=== PATIENT | female | born 1975 | race Caucasian/White ===

== ENCOUNTER → 2017-04-15 | Outpatient (CLI) | payer OTHER, SELFPAY | PROVIDERS: PCP Nurse Practitioner Obstetrics & Gynecology; Visit Provider Nurse Practitioner Obstetrics & Gynecology ==

== ENCOUNTER → 2017-04-20 16:42 | Outpatient (CLI) | payer OTHER, SELFPAY ==
--- NOTE | 2017-04-20 16:47 | MM_ITS ---
MM Dig screening mamm BI w/CAD CAD Screening ORDERING PHYSICIAN : Marcio Winter MD PATIENT AGE: 41 years GENDER: Female COMPARISON: Previous mammograms: 20 Previous mammogram studies from November 2015, April 2015, March 2014 INDICATION: Previous excisional biopsy left breast TECHNIQUE: Standard CC and MLO images were obtained. R2 CAD reviewed. FINDINGS: Low-density breast bilaterally RIGHT BREAST: There is a new slightly lobulated density of slight kidney shape area deep central right breast 12:00. Note 2 small calcifications at its inferior/anterior margin noted. It measures up to 10 mm height 8 mm Initially I would attribute this to an intramammary lymph node in this location given its slightly reniform shape but is become apparent since previous studies. Not seen on prior studies.. Also its margins are slightly ill-defined and it does warrant further evaluation & at least follow-up. Recommend spot CC and 90 degree view followed by ultrasound right breast LEFT BREAST:Left breast. Previous percutaneous biopsy with metallic marker anterior left breast. There is a small focal irregular area density at biopsy site which is been seen on studies back to 2013, similar appearance overall. There are also numerous small dot like calcifications but these small pinpoint calcifications most likely postbiopsy calcifications is similar to 2016 and similar to the more lateral. Most likely these are with biopsy calcifications with this punctate scattered character , however patient returns suggest suggest obtaining a magnification spot 90 degree view to evaluate both areas of of calcification superiorly and inferiorly, as well as a cc magnification view of both regions. (At X and Y) . AlsoPrevious excisional biopsy left breast with architectural distortion very numerous tiny punctate calcifications here. Area labeled X . IMPRESSION:...... ---- 1. Right breast Nearly up to 10 mm height nodular density deep right breast it was not present on previous studies and Although its appearance is suspect for intramammary node it was not present on previous studies and this warrants further evaluation with spot views (90 degrees and cc) and ultrasound thereafter. 2 Left breast. : Additional magnification views at X and Y suggested when patient returns . Previous excisional biopsy lateral left breast shows architectural distortion.. Small punctate calcifications throughout this area similar to last year but shows slow progression. Is most likely post biopsy benign calcifications but would benefit from additional views at this area labeled X Previous percutaneous biopsy with metallic clip at medial retroareolar region. Residual focal density Labeled Y. ; appears fairly stable but there are progressive small punctate calcifications BI-RADS Category: 0 Need Additional Imaging Evaluaiton RECOMMENDED FOLLOW-UP: IMM - IMMEDIATE FOLLOW-UP RECOMMENDED Spot views and ultrasound right breast. Magnification views left breast.-as described above (A letter has been sent to the patient regarding results of the study.)
== END ==
PROVIDERS: PCP Nurse Practitioner Obstetrics & Gynecology; Visit Provider Nurse Practitioner Obstetrics & Gynecology
DX: Z12.31 Encounter for screening mammogram for malignant neoplasm of breast (principal)
CPT/HCPCS: 77067

== ENCOUNTER → 2017-05-07 14:57 | Outpatient (CLI) | payer OTHER, SELFPAY ==
--- NOTE | 2017-05-07 | US_ITS ---
MM Dig mamm BI DX w/CAD, US breast RT complete COMPARISON: 04 20 17 and 12/06/2015 INDICATION: Follow-up abnormal mammogram ORDERING PHYSICIAN: Marcio Winter MD PATIENT AGE: 41 years TECHNIQUE: Spot compression views on the right along with magnification views on the left and right breast ultrasound FINDINGS: Right breast: Persistent nodule measuring 8 x 6 mm in the 12:00 region of the right breast. The margins are somewhat micronodular. There is some minimal calcification noted along the anterior margin of the nodule. This has mildly suspicious appearance. A cyst was not identified in this region by ultrasound Right breast ultrasound: The nodule of interest is not identified by ultrasound. No solid or cystic lesions evident by ultrasound. Left mammogram: Punctate calcifications are present in the upper outer left breast in the periareolar area. The calcifications are somewhat sludge in. Biopsy clip is present in the retroareolar region medially. No one Area of suspicious calcification is evident. There is mild degree of motion artifact despite repeating the images. Calcifications do not appear significantly changed compared to older magnification views of 12/06/2015 IMPRESSION: Persistent nodular opacity in the deep right breast at 12:00 not readily cystic by ultrasound. Mildly suspicious. Calcifications of the left breast are felt to be benign BI-RADS Category: 4 Suspicious Abnormality-Biopsy Considered RECOMMENDED FOLLOW-UP: IMM - IMMEDIATE FOLLOW-UP RECOMMENDED Recommend stereotactic directed biopsy of the right breast. The lesion of interest is fairly deep. Stereotactic biopsy may not be successful but should be tried. A stereotactic biopsy is not successful then a core guided biopsy may be needed (A letter has been sent to the patient regarding results of the study.)
== END ==
PROVIDERS: PCP Family Medicine; Visit Provider Nurse Practitioner Obstetrics & Gynecology
DX: R92.2 Inconclusive mammogram (principal)
CPT/HCPCS: 76641; 77066

== ENCOUNTER → 2017-06-23 08:21 | Outpatient (CLI) | payer OTHER, SELFPAY ==
--- NOTE | 2017-06-23 | MM_ITS ---
MM stereotactic loc RT MM Dig mamm DX unilat RT CAD, COMPARISON: 05/07/2017 mammogram INDICATION: Abnormal mammogram showing a suspicious nodule in the 12-1 o'clock region of the right breast ORDERING PHYSICIAN: Marcio Winter MD PATIENT AGE: 42 years TECHNIQUE: Following obtaining informed consent the nodule of interest was located by stereotactic technique. Using aseptic conditions and local anesthesia with 1% lidocaine and deeper anesthesia with lidocaine mixed with epinephrine a term ostomy was performed and 9 gauge mammotomy needle inserted . Multiple mammotomy cores were obtained. Specimen radiograph did demonstrate the calcifications of interest that were associated with the nodule. A clip was then placed using standard technique. The patient tolerated the procedure well without evidence of immediate complication. Post biopsy mammogram demonstrated biopsy changes in the upper aspect of the right breast with clip in place in satisfactory position in the region of the previously described nodule. Pathology: Focal proliferated breast disease with papillary changes and apical metaplasia. Negative for atypia or malignancy. No mention was made of calcifications therefore, additional pathological review will be requested IMPRESSION: Successful stereotactic directed biopsy of the right breast showing benign findings. As there are no mention of calcifications, will ask pathologist to reviewed the specimen to look for calcifications Further review performed by the pathologist. Calcifications are still not identified . They are definitely present within the tissue specimen. They may have been lost during processing. The pathology on the specimen was benign. Postbiopsy mammogram showed defect in the area of the suspected nodule. RECOMMENDED FOLLOW-UP: 6M - 6 MONTH FOLLOW-UP BI-RADS Category: 2 Benign Finding(s) (A letter has been sent to the patient regarding results of the study.)
== END ==
PROVIDERS: PCP Family Medicine; Visit Provider Nurse Practitioner Obstetrics & Gynecology
DX: N63.0 Unspecified lump in unspecified breast (principal); R92.1 Mammographic calcification found on diagnostic imaging of breast
CPT/HCPCS: 19081; 77065

== ENCOUNTER → 2017-12-28 15:01 | Outpatient (CLI) | payer OTHER, SELFPAY ==
--- NOTE | 2017-12-28 15:04 | MM_ITS ---
MM Dig mamm DX unilat RT CAD INDICATION: Follow-up biopsy ORDERING PHYSICIAN: Marcio Winter MD PATIENT AGE: 42 years COMPARISON: 05/07/2017, 06/23/2017 TECHNIQUE: Diagnostic mammogram of the right with probable centimeters FINDINGS: Mostly fatty replaced fibroglandular tissue. Status post biopsy of the nodule in the central aspect of the right breast superiorly. Biopsy clip is present in that area with some residual density likely reflecting some mild scarring. Previously described nodular density in that area is no longer apparent. No calcifications evident in that region. There is a cluster of calcifications in the right retroareolar region which have developed in the interval and are mildly suspicious. IMPRESSION: Mildly suspicious calcifications in the right retroareolar region. BI-RADS Category: 4 Suspicious Abnormality-Biopsy Considered RECOMMENDED FOLLOW-UP: BIO - BIOPSY RECOMMENDED (A letter has been sent to the patient regarding results of the study.)
== END ==
PROVIDERS: PCP Family Medicine; Visit Provider Nurse Practitioner Obstetrics & Gynecology
DX: R92.8 Other abnormal and inconclusive findings on diagnostic imaging of breast (principal)
CPT/HCPCS: 77065

== ENCOUNTER → 2018-01-05 09:23 | Outpatient (CLI) | payer OTHER, SELFPAY ==
--- NOTE | 2018-01-05 09:26 | MM_ITS ---
MM stereotactic loc RT MM Dig mamm DX unilat RT CAD, ORDERING PHYSICIAN: Marcio Winter MD PATIENT AGE: 42 years Comparison: 12/28/2017 HISTORY: Breast calcifications, abnormal mammogram with suspicious calcifications PROCEDURE: The patient was given 0.5 mg of Xanax, Lortab 5 mg, and analgesia and minor sedation. The patient was placed on the stereotactic table and the abnormality was localized in the most appropriate projection. The breast was prepped in the routine manner, with sterile prep and the overlying skin anesthetized. A 3 to 4 mm skin incision was performed and the 9 gauge sorus vacuum-assisted core biopsy needle was advanced to the region of the calcification. Pre- and post fire images were obtained. After adequate positioning relative to the calcifications was ensured, multiple biopsies were obtained in the region of the calcifications specifically. The core biopsies obtained were sent for specimen mammography. After the calcifications were indeed identified on the specimen mammogram, the procedure was terminated. The patient tolerated the procedure well without complications. Specimen was sent for pathologic analysis which should be forthcoming within 3 working days. Routine follow-up phone call to patient is to be performed as well. A tiny titanium nonferromagnetic MicroMark was positioned through the mammotome needle into the biopsy site. Pathology: Negative for atypical hyperplasia or malignancy. Proliferative breast tissue Nodular stromal fibrosis with fibrocystic changes and apical metaplasia with calcifications IMPRESSION: 1. Successful stereotactic vacuum-assisted core biopsy of the Right breast calcifications. 2. Successful placement of a titanium metal MicroMark. 3. No noted complications. SPECIMEN RADIOGRAPH: The mammographically evident calcifications from the prior study are currently evident within the Alejandro dish and within the specimens obtained during mammotome procedure. This is considered an adequate specimen and the procedure was terminated. IMPRESSION: Successful removal of described breast calcifications. Right BREAST MAMMOGRAM: Compared to the prior study, the previously noted calcification have been removed. A small MicroMark clip was inserted into the region of the calcifications. There is evidence of soft tissue changes in the region of the biopsy was soft tissue gas and edema. IMPRESSION: 1. Adequate placement of the MicroMark clip postbiopsy. 2. Postbiopsy changes within the rightbreast.
== END ==
PROVIDERS: PCP Family Medicine; Visit Provider Nurse Practitioner Obstetrics & Gynecology
DX: R92.8 Other abnormal and inconclusive findings on diagnostic imaging of breast (principal)
CPT/HCPCS: 19081; 77065

== ENCOUNTER → 2018-01-10 14:27 | Outpatient (POV) | payer OTHER, SELFPAY | PROVIDERS: PCP Family Medicine; Referring Provider Orthopaedic Surgery; Visit Provider Specialist | DX: G56.01 Carpal tunnel syndrome, right upper limb (principal) | CPT/HCPCS: 95886; 95908 ==

== ENCOUNTER → 2018-07-07 16:12 | Outpatient (CLI) | payer OTHER, SELFPAY ==
--- NOTE | 2018-07-07 16:17 | MM_ITS ---
MM Dig screening mamm BI w/CAD ORDERING PHYSICIAN : Marcio Winter MD PATIENT AGE: 43 years GENDER: Female COMPARISON: Right mammogram June & December 2017. Bilateral mammogram images from April 2017, April 2015 \ HISTORY. Routine screening.. No hormones no new complaints. screeningFamily history. Maternal grandmother with breast cancer in her 50s Benign percutaneous biopsies right breast: June 2017 -biopsy with clip placement deep right breast December 2017-percutaneous biopsy small grouping calcifications at the retroareolar region,. . Percutaneous biopsy left breast 2012.-Fibrocystic changes and fibrocystic calcifications TECHNIQUE: Standard CC and MLO images were obtained. R2 CAD reviewed. Additional nipple profile MLO view left breast FINDINGS: Minimal residual fibroglandular elements. Lower density breast overall with Generalized fatty replacement . New areas of concern. RIGHT BREAST: No new findings at the right breast. The small nodular density deep right breast seen is seen on April 2017 study has been removed with the percutaneous biopsy. Metallic marker now seen here from such. There is also a second marker seen at the central breast retroareolar region. No new findings here or elsewhere. A few small punctate calcifications faintly seen elsewhere throughout breast appears stable and can be followed LEFT BREAST: Area X: There is been a previous biopsy at medial left breast with metallic MicroMark.. Just lateral to this metallic marker on the cc view I would note a grouping of calcifications is become more evident. These are fairly punctate in nature most likely benign, but are more evident today evident today-. Slightly denser most likely & perhaps slightly more numerous.. *Would benefit from follow-up CC and 90 degree magnification views at the area labeled X on cc view. These specific calcifications are more difficult to visualize on MLO view an seem to dissipate somewhat. Previous percutaneous biopsy and November 2012..Revealed fibrocystic calcifications Area Y:. Numerous other scattered punctate calcifications seen towards the lateral breast on cc view and become quite diffuse towards on MLO view and it have slowly increased in number over time (particular compared back to 2012). These appear punctate & similar to previous studies appear to be stable benign process, adenosis. However the magnification views could perhaps include these areas to evaluate again as well ----- IMPRESSION: Previous bilateral percutaneous biopsies ... LEFT BREAST:. Progression of grouped calcifications noted, projected adjacent, lateral to the percutaneous biopsy metallic MicroMark as seen on today's cc view.. (Area labeled X) However I believe become slightly more scattered, on the MLO view. Most likely these reflecting adenosis & fibrocystic calcifications or changes as,*but would benefit from magnification CC and 90 degree view to further characterize [and evaluate.] Numerous other scattered punctate calcifications lateral right breast ( area/ region labeled Y) has shown slow subtle progression over the years. These are most certainly benign adenosis/ fibrocystic calcifications but can be included on magnification views when patient returns .... RIGHT BREAST. No significant new findings. Follow-up in one year. BI-RADS Category: 0 Need Additional Imaging Evaluation RECOMMENDED FOLLOW-UP: IMM - IMMEDIATE FOLLOW-UP RECOMMENDED Magnification views left breast (A letter has been sent to the patient regarding results of the study.)
== END ==
PROVIDERS: PCP Family Medicine; Visit Provider Nurse Practitioner Obstetrics & Gynecology
DX: Z12.31 Encounter for screening mammogram for malignant neoplasm of breast (principal)
CPT/HCPCS: 77067

== ENCOUNTER → 2018-07-15 15:13 | Outpatient (CLI) | payer OTHER, SELFPAY ==
--- NOTE | 2018-07-15 15:16 | MM_ITS ---
MM Dig mamm DX unilat LT CAD Ordering Physician: Marcio Winter MD Patient Age: 43 years Female COMPARISON: April. This there Also October 2012 mammogram following percutaneous biopsy of similar calcifications INDICATION: Further evaluation progressive breast calcifications left. Previous biopsy on left TECHNIQUE: Multiple spot and magnification views left breast of area labeled X and Y. These were performed in the CC, 90 degree projection FINDINGS: --- There is metallic marker from previous stereotactic biopsy which is useful as a reference point. It is near the area that was labeled X Area labeled X.: On the cc view there appear to be increased number of calcifications adjacent to the metallic clip from previous biopsy. However on the 90 degree views these calcifications appear to become more scattered and are not localized to one specific area. The 90 degree ML view shows several regions of of loosely associated calcifications both inferior and superior to the metallic marker..-Thus suggest 6 month follow-up as this This more diffuse scattered pattern is more suggestive of of adenosis/ & fibrocystic calcifications as was shown on the previous biopsy ( 2013 biopsy showed fibrocystic calcifications). Area labeled Y. . similar considerations as above... These are fairly scattered and actually are are more similar to previous studies dating back to 2016. This is difficult breasts to evaluate given the numerous calcifications. I would note majority calcifications are fairly punctate in character which supports benign character; and we do not see highly suspicious branching or pleomorphic forms.. . Again the punctate scattered calcifications tend supports fibrocystic calcification/adenosis. Thus I believe follow-up would be the best course of action; and if a a single grouping of calcifications becomes of progressive it may need to be pursued with stereotactic. Currently there is no single grouping of calcifications of significantly greater concern, than another; thus follow-up in 5- 6 months recommended IMPRESSION: Difficult to evaluate breast with numerous small calcifications throughout which has shown gradual progression in recent years.. The patient has had a previous biopsy in 2012 which revealed benign fibrocystic calcification. I believe this is most likely what we are viewing now (fibrocystic calcifications/benign adenosis) These are generally small scattered punctate calcifications, but with some areas loosely grouped slightly more evident. But No single area of these loosely grouped calcifications is of significantly greater concern than another . No highly suspicious cluster . Recommend follow-up left mammogram in 5-6 months with magnification views to further confirm relative stability and again evaluate. BI-RADS Category: 3 Probably Benign Finding Short Term Follow-up RECOMMENDED FOLLOW-UP: 6M 6 MONTH FOLLOW-UP A letter has been sent to the patient regarding results of the study.)
== END ==
PROVIDERS: PCP Family Medicine; Visit Provider Nurse Practitioner Obstetrics & Gynecology
DX: R92.8 Other abnormal and inconclusive findings on diagnostic imaging of breast (principal)
CPT/HCPCS: 77065

== ENCOUNTER → 2019-01-27 12:43 | Outpatient (CLI) | payer OTHER, SELFPAY ==
--- NOTE | 2019-01-27 12:44 | MM_ITS ---
PROCEDURE: MM DIG MAMM UNILATERAL LEFT DX W/CAD CLINICAL INDICATION: Dx Bilateral Mammogram- 6 mo f/u Six-month follow-up left breast, follow-up calcifications COMPARISON: [id number] DIG MAMM-DX UNI ADD VIEWS-LT from 04/29/2012 DMDXUL DIG MAMM-DX UNI-LT from 10/27/2012 [facility] DIG MAMM-SURGICAL SPECIMEN from 11/16/2012 DXRT MM Dig mamm DX unilat RT CAD from 01/05/2018 [facility] MM Dig screening mamm BI w/CAD from 07/07/2018 DXLT MM Dig mamm DX unilat LT CAD from 07/15/2018 TECHNIQUE: Mag views obtained along with standard views FINDINGS: There are multiple punctate calcifications once again noted scattered throughout the left breast as previously described. These do not appear significantly changed. There has been prior biopsy with a clip present in the medial aspect of the left breast. There is some nodularity noted in this region and along with punctate calcifications which do not appear significantly changed. IMPRESSION: Probably benign findings. Recommend continued six-month follow-up with magnification views. At that time the right breast should also be performed for continued screening. BI-RAD Category: 3 Probably Benign Finding Short Term Follow-up FOLLOW-UP: 6M 6Month Follow-up (A letter has been sent to the patient regarding results of the study.) Dictated by: Chi Macario MD 02/03/2019 08:21 Electronically signed by Chi Macario MD in [place] 02/03/2019 08:21
== END ==
PROVIDERS: PCP Family Medicine; Visit Provider Nurse Practitioner Obstetrics & Gynecology
DX: R92.8 Other abnormal and inconclusive findings on diagnostic imaging of breast (principal)
CPT/HCPCS: 77065

== ENCOUNTER → 2019-02-28 15:30 | Outpatient (POV) | payer OTHER, SELFPAY | PROVIDERS: Visit Provider Dermatology | DX: Z00.00 Encounter for general adult medical examination without abnormal findings (principal) ==

== ENCOUNTER → 2019-07-31 12:50 | Outpatient (CLI) | payer OTHER, SELFPAY ==
--- NOTE | 2019-07-31 12:51 | MM_ITS ---
PROCEDURE: MM DIG MAMM BI DX W/CAD Digital Breast Tomosynthesis Included CLINICAL INDICATION: abnormal xmg The breast cancer patient's maternal grandmother diagnosed in her 50s. This is a six-month follow-up mammogram left breast and yearly screening exam right breast. COMPARISON: [facility] MM Dig screening mamm BI w/CAD from 07/07/2018 DXLT MM Dig mamm DX unilat LT CAD from 07/15/2018 MM DIG MAMM DX UNILAT LT CAD from 01/27/2019 TECHNIQUE: Standard CC and MLO images and 3D Tomosynthesis was obtained. R2 CAD reviewed. FINDINGS: The breasts are composed primarily of fat with minimal scattered fibroglandular densities throughout each breast. There are stable benign-appearing microcalcifications right breast. There is an asymmetric density mid left breast inner quadrant with associated microcalcifications and a biopsy clip in the central portion of the density. The combination of findings suggests post biopsy scarring with associated benign-appearing microcalcifications. Lloyd images are helpful and confirming the suspicion of post biopsy scarring left breast. There is no new or suspicious lesion in either breast and no suspicious microcalcifications. IMPRESSION: Fatty type breast parenchyma with stable asymmetric density with associated biopsy clip left breast BI-RAD Category: 2 Benign Finding(s) FOLLOW-UP: 1YR 1 Year Follow-up (A letter has been sent to the patient regarding results of the study.) Dictated by: Dr. Raudel Rm MD 08/03/2019 20:[address] Raudel Rm MD in [place] 08/03/2019 20:16
== END ==
PROVIDERS: Visit Provider Nurse Practitioner Obstetrics & Gynecology
DX: R92.8 Other abnormal and inconclusive findings on diagnostic imaging of breast (principal)
CPT/HCPCS: 77062; 77066; G0279

== ENCOUNTER 2020-03-02 15:52 | Emergency (ER) | payer OTHER, SELFPAY ==
[2020-03-02 16:03] VITALS: BP 132/81; PULSE 83; RESP 18; TEMP 36.9; O2SAT 98; BMI 43.0
--- NOTE | 2020-03-02 16:08 | HMH.EDUTC ---
[facility] Disposition Clinical Impression: Encounter for laboratory testing for COVID-19 virus Disposition: Home, Self-Care Condition on Discharge: Good Instructions: DI for Viral Syndrome, Preventing the Spread of Coronavirus Discharge Instructions Additional Instructions: *Monitor Temp, Over the counter Motrin or Tylenol as directed/as needed Tylenol every 4 hours and Motrin every 6 hours (as long as your family doctor has told you that you can take it) for fever or pain. and straight to ER if unable to lower temp less than 101.0 after medication given *Warm salt water gargles may help to soothe the throat *Throat Lozenges *Warm fluids like tea with honey may help to soothe the throat *Sleep elevated *Humidifier/Vaporizer Follow up IMMEDIATELY for new or worsening symptoms or no Noticeable improvement over the next 48-72 hours. 911 for difficulty breathing or swallowing You was tested for today for COVID19 your test result should be back in the next 24-48 hours, you may call to the [facility] tomorrow to see if your test results are back and the result [phone] You was given a handout with instructions for Self Quarantine and Self isolation for while you wait on test results and what to do if they are positive If you are positive the Health Dept will be contacting you also Prescriptions: Benzonatate [Tessalon Perle 100mg Cap*] 100 mg PO TID PRN #30 cap PRN Reason: Cough Transmission Status: Pending to [id number] Referrals: Sera Kwok [Primary Care Provider] - As needed Forms: Work/School Release Time of Disposition: 16:12 Medical Decision Making - Salvador Inquiry Pt receiving controlled substance: No Salvador was queried for this patient: No Vital Signs: 03/02/20 16:03 Temperature 98.4 F Temperature Source Oral Pulse Rate [Radial] 83 Respiratory Rate 18 Blood Pressure [Right Arm] 132/81 Blood Pressure Mean [Right Arm] 98 Blood Pressure Source [Right Arm] Automatic Cuff Blood Pressure Position [Right Arm] Sitting 02 Sat by Pulse Oximetry 98 Oxygen Delivery Method Room Air Orders (Tests/Meds): ORDERS Category Date Time Status Covid-19 Nasal PCR ([facility]) Routine Lab 03/02/20 16:05 Received [facility] HPI - General Stated complaint: Cough, body aches Time Seen by Provider: 03/02/20 16:08 Mode of Arrival: Ambulatory Source of Information: Patient Limitations: No Limitations Description of Symptoms (Recalled from Triage Doc. by RN): COUGH AND BODY ACHES, WANTS COVID TEST HEENT Symptoms (Recalled from RN notes): Yes Resp Symptoms (Recalled from RN notes): No Skin Symptoms (Recalled from RN notes): No MS Symptoms (Recalled from RN notes): No Functional Status (Recalled from RN notes): WNL - History of Present Illness Provider Complaint: Patient state that she has been having cough and body aches States that son is having same symptoms and recently lost his sense of taste and smell States that she wanted to get tested for COVID unsure of exposure - Related Data Home Medications Medication Instructions Recorded Confirmed escitalopram oxalate 10 mg tablet 10 mg PO ONCE 06/14/17 01/21/18 lisinopril 10 mg tablet 10 mg PO ONCE 06/14/17 01/21/18 montelukast 10 mg tablet 10 mg PO QHS 06/14/17 01/21/18 Previous Rx's Medication Instructions Recorded Benzonatate [Tessalon Perle 100mg 100 mg PO TID PRN #30 cap 03/02/20 Cap*] Allergies Allergy/AdvReac Type Severity Reaction Status Date / Time INGREDIENT: NO KNOWN - NO Allergy Unknown Uncoded 06/14/17 11:56 KNOWN DRUG ALLERGY - Worker's Comp Is this a Worker's Comp case?: No [facility] History - Hepatitis A Screen Drug use history?: No High risk sexual behaviors?: No History of sexually transmitted infection?: No Currently employed?: No Childcare worker?: No Do you have indoor plumbing?: Yes Do you have electricity?: Yes Attestation statement:: This patient has been screened for Hepatitis A risk factors. I have revi
[2020-03-02 16:29] VITALS: BP 132/81; PULSE 83; RESP 18; TEMP 36.9; O2SAT 98
== END 2020-03-02 16:32 | disposition home or self-care (01) ==
PROVIDERS: Emergency Provider Nurse Practitioner; PCP Family Medicine
DX: U07.1 COVID-19 (principal); I10 Essential (primary) hypertension; Z79.899 Other long term (current) drug therapy
CPT/HCPCS: 99201; U0003

== ENCOUNTER → 2020-05-24 16:13 | Outpatient (CLI) | payer OTHER, SELFPAY ==
--- NOTE | 2020-05-24 16:22 | MR_ITS ---
PROCEDURE: MR HEAD/BRAIN WO CON CLINICAL INDICATION: H/A S pt c/o persistent headaches since having covid in February of 2020. Pt also c/o blurred vision and memory issues. COMPARISON: No exams were available for comparison TECHNIQUE: Routine multiplanar multi echo sequences are performed without gadolinium enhancement. FINDINGS: No midline shift, mass effect, intracranial hemorrhage, or hydrocephalus. No evidence of acute infarction The cerebellopontine angles, cerebellum, and brainstem are unremarkable. There is normal silva-white matter differentiation with no abnormal white matter signal intensity evident. The pituitary, optic chiasm, corpus callosum, and craniocervical junction have an unremarkable appearance. No mastoid effusion or sinus air-fluid level. IMPRESSION: Negative MRI brain without contrast, no acute finding Dictated by: Chi Macario MD 05/26/2020 09:07 Chi Macario MD in [place] 05/26/2020 09:07
== END ==
PROVIDERS: PCP Family Medicine; Visit Provider Family Medicine
DX: H53.9 Unspecified visual disturbance (principal)
CPT/HCPCS: 70551

== ENCOUNTER → 2020-08-01 16:18 | Outpatient (CLI) | payer OTHER, SELFPAY ==
--- NOTE | 2020-08-01 16:18 | MM_ITS ---
PROCEDURE: MM DIG SCREENING MAMM BI W/CAD Digital Breast Tomosynthesis Included CLINICAL INDICATION: screening xmg There is a history of breast cancer in the patient's maternal grandmother and in the patient's mother who was diagnosed at age 71. There has been a previous biopsy left breast for benign disease. COMPARISON: MG DXLT MM Dig mamm DX unilat LT CAD from 07/15/2018 MG MM DIG MAMM DX UNILAT LT CAD from 01/27/2019 MG MM DIG MAMM BI DX W/CAD from 07/31/2019 TECHNIQUE: Standard CC and MLO images and 3D Tomosynthesis was obtained. R2 CAD reviewed. FINDINGS: Scattered fibroglandular densities are seen throughout both breasts. There is a biopsy clip just deep to the nipple left breast with the surrounding density in this likely represents the original lesion which was biopsied. There are 2 biopsy clips right breast 1 deep within the central portion the breast the other just deep to the nipple. There are scattered benign-appearing microcalcifications left breast. There are no suspicious microcalcifications. IMPRESSION: Stable exam with no suspicious lesions seen BI-RAD Category: 2 Benign Finding(s) FOLLOW-UP: 1YR 1 Year Follow-up (A letter has been sent to the patient regarding results of the study.) Dictated by: Dr. Raudel Rm MD 08/02/2020 13:19 Dr. Raudel Rm MD in [place] 08/02/2020 13:19
== END ==
PROVIDERS: PCP Family Medicine; Visit Provider Nurse Practitioner Obstetrics & Gynecology
DX: Z12.31 Encounter for screening mammogram for malignant neoplasm of breast (principal)
CPT/HCPCS: 77063; 77067

== ENCOUNTER → 2021-08-04 15:51 | Outpatient (CLI) | payer OTHER, SELFPAY ==
--- NOTE | 2021-08-04 15:51 | MM_ITS ---
PROCEDURE INFORMATION: Exam: MG Bilateral Screening 3D Mammography Exam date and time: 08/04/2021 3:47 PM Age: 46 years old Clinical indication: Screening examination TECHNIQUE: Imaging protocol: Bilateral Screening tomosynthesis and 2D mammography including computer-aided detection (CAD) when performed. COMPARISON: 1. MG MM DIG SCREENING MAMM BI W/CAD 08/01/2020 4:19 PM 2. MG MM DIG MAMM BI DX W/CAD 07/31/2019 1:07 PM FINDINGS: MAMMOGRAPHY: Breast composition: The breast tissue is composed of scattered areas of fibroglandular density. Mass: None. Architectural distortion: None. Calcifications: No suspicious calcifications. Asymmetric density: None. Skin thickening: None. Axillary adenopathy: None. IMPRESSION: No mammographic evidence of malignancy. Annual screening is recommended unless otherwise clinically indicated. ASSESSMENT: BI-RADS Category 1: Negative
== END ==
PROVIDERS: PCP Family Medicine; Visit Provider Nurse Practitioner Obstetrics & Gynecology
DX: Z12.31 Encounter for screening mammogram for malignant neoplasm of breast (principal)
CPT/HCPCS: 77063; 77067

== ENCOUNTER → 2022-01-07 16:04 | Outpatient (CLI) | payer OTHER, SELFPAY | PROVIDERS: PCP Family Medicine; Visit Provider Surgery | DX: Z01.812 Encounter for preprocedural laboratory examination (principal); Z20.822 Contact with and (suspected) exposure to COVID-19; Z12.11 Encounter for screening for malignant neoplasm of colon | CPT/HCPCS: C9803; U0003; U0005 ==

== ENCOUNTER 2022-01-09 07:20 | Day surgery (SDC) | payer OTHER, SELFPAY ==
[2022-01-08 08:07] VITALS: BMI 43.0
[2022-01-09 07:44] VITALS: BP 101/67; PULSE 68; RESP 18; TEMP 36.2; O2SAT 96
[2022-01-09 07:52] LABS: Urine Pregnancy, HCG Qual. Negative (Negative)
--- NOTE | 2022-01-09 08:36 | EXP.ANES.CKL ---
PFSH PFS Medical History Hypertension Migraine Sleep apnea Surgical History History of section History of tubal ligation Family History Mother Breast cancer Father Family history of diabetes mellitus type II Social History Smoking Status: Never smoker alcohol intake: never substance use type: denies use current occupational status: employed and other Travel in the last 8 weeks: None [facility] Anesthesia Checklist Patient Identification Patient Identification: Arm Band Structural Data Admitted From: Home Planned Operative Procedure/s: Colonoscopy Consent for Planned Operative Procedure(s) Verified: Yes NPO Status Verified Time NPO: 02:30 Airway Assessment C-Spine Mobility Assessed: Yes TMJ Mobility Assessed: Yes Dentition: Good Dentition Neurological Assessment Level of Consciousness: Awake Hx Seizures: No Numbness or tingling in extremities: No Anesthesia Plan Anesthesia Risk discussed: Yes Anesthesia Plan: Verified ASA Class: III Anesthesia Type: MAC
[2022-01-09 08:53] VITALS: O2SAT 96
--- NOTE | 2022-01-09 09:21 | HMH.SCOPE ---
Procedure: Date: 01/09/22 Patient Date of :: 1975 Procedure Performed:: Total colonoscopy to terminal ileum with polypectomy x2 using biopsy forceps Indications:: 46-year-old female referred for initial screening colonoscopy. I had previously seen her for an abnormal mammogram. Performing Provider:: Blayne Grove MD Referring Provider:: Sera Kwok MD Sedation:: MAC sedation Procedure:: Patient was positioned in lateral decubitus position. Adequate intravenous sedation was achieved with anesthesia titration of propofol. Variable stiffness Olympus colonoscope was inserted via the anus. It was advanced to the cecum. Colonic preparation was good and visualization was good. Ileocecal valve and appendiceal orifice were clearly identified. Colonoscope was advanced a short distance into the terminal ileum which appeared grossly normal. Colonoscope was slowly withdrawn through the colon with careful surveillance. There were a couple of diminutive polyps in the sigmoid colon, one appeared tiny adenomatous and one appeared hyperplastic. They were removed with cold biopsy forceps. There were a few scattered sigmoid diverticuli. Retroflexion within the rectum revealed no evidence of any pathologic internal hemorrhoids. Colonoscope was withdrawn. Findings:: Diminutive polyp x2 Rare sigmoid diverticuli Recommendations:: Follow-up colonoscopy pending pathology, likely 5 years Complications:: None immediately apparent Estimated blood obtained (mL): 1
[2022-01-09 09:23] VITALS: BP 147/106; PULSE 70; RESP 14; TEMP 36.4; O2SAT 93
[2022-01-09 09:33] VITALS: BP 160/96; PULSE 72; RESP 14; O2SAT 96
[2022-01-09 09:43] VITALS: BP 149/83; PULSE 68; RESP 16; O2SAT 98
[2022-01-09 09:53] VITALS: BP 142/87; PULSE 63; RESP 18; TEMP 36.4; O2SAT 99
== END 2022-01-09 09:53 | disposition home or self-care (01) ==
PROVIDERS: PCP Family Medicine; Visit Provider Surgery
PROC: 0DJD8ZZ Inspection of Lower Intestinal Tract, Via Natural or Artificial Opening Endoscopic (ICD-10-PCS; CPT 45380; principal; 2022-01-09 08:30)
DX: Z12.11 Encounter for screening for malignant neoplasm of colon (principal); K63.5 Polyp of colon; Z79.899 Other long term (current) drug therapy
CPT/HCPCS: 45380; 81025; J2704

== ENCOUNTER 2022-09-14 09:57 | Emergency (ER) | payer OTHER, SELFPAY ==
--- NOTE | 2022-09-14 10:51 | EXP.UTC ---
Discharge Plan Disposition Patient Disposition: Home, Self-Care Condition: Good Prescriptions Prescriptions: New ciprofloxacin HCl 0.3 % drops See Rx Instructions .ROUTE .COMPLEX Qty: 5 0RF Rx Instructions: put 1 drp in right eye every 2hr x2days; then 4 times/day x5days No Action montelukast [Singulair] 10 mg tablet 10 mg PO QHS escitalopram oxalate [Lexapro] 10 mg tablet 10 mg PO ONCE losartan 50 mg tablet 50 mg PO DAILY Label Comments: TAKE 1 TABLET BY MOUTH ONCE DAILY propranolol 20 mg tablet 20 mg PO DAILY Label Comments: TAKE 1 TABLET BY MOUTH THREE TIMES DAILY NEEDED Referrals Follow up/Referrals: Sera Kwok [Primary Care Provider] - See instructions Activity Restrictions/Add. Instructions Additional Instructions/Restrictions: Use the eye drops as directed. Strict hand washing in the house hold, because conjunctivitis is very contagious. Follow up with your regular doctor. Follow up with your eye doctor if you symptoms persist. GO TO THE ER FOR ANY WORSENING SYMPTOMS OR CONCERNS Clinical Impressions Clinical Impression: Conjunctivitis of right eye Stand Alone Forms Stand Alone Forms: Work/School Release Instructions Patient Instructions: How to Instill Eye Drops, Conjunctivitis, DI for Conjunctivitis Discharge ED Provider: Ousmane Shafer [facility] General Stated complaint: RT eye inflammation w/ drainage Time Seen by Provider: 09/14/22 10:51 History of Present Illness Provider Complaint: She c/o left eye irritation and swelling for the past 1 day. She denies any injury or foreign body. Related Data Home Medications Medication Instructions Recorded Confirmed escitalopram oxalate 10 mg tablet 10 mg PO ONCE Depression 06/14/17 09/14/22 (Lexapro) montelukast 10 mg tablet 10 mg PO QHS allergies 06/14/17 09/14/22 (Singulair) losartan 50 mg tablet 50 mg PO DAILY bp 01/08/22 09/14/22 propranolol 20 mg tablet 20 mg PO DAILY Anxiety 01/08/22 09/14/22 Previous Rx's Medication Instructions Recorded ciprofloxacin HCl 0.3 % eye drops See Rx Instructions ophthalmic 09/14/22 (eye) .COMPLEX #5 mL Allergies Allergy/AdvReac Type Severity Reaction Status Date / Time No Known Allergies Allergy Verified 09/14/22 10:53 [facility] Disclaimer: The information contained in this section may have been updated after the patient was seen, as this information can be updated by other users. Medical History Hypertension Migraine Sleep apnea Surgical History History of section History of tubal ligation Family History Mother Breast cancer Father Family history of diabetes mellitus type II Social History Smoking Status: Never smoker alcohol intake: never substance use type: denies use current occupational status: employed and other Travel in the last 8 weeks: None ROS Obtained: Yes All systems reviewed & no additional complaints except as documented Constitutional Constitutional: Denies chills and Denies fever(s) Eyes Eyes: Reports eye discharge ENT Ears, Nose, Mouth, and Throat: Denies dizziness, Denies otalgia and Denies sore throat Cardiovascular Cardiovascular: Denies chest pain Respiratory Respiratory: Denies shortness of breath, Denies chest congestion, Denies cough, Denies stridor and Denies wheezing Gastrointestinal Gastrointestingal: Denies nausea or vomiting Musculoskeletal Musculoskeletal: Reports system reviewed and no additional complaints, except as documented and Denies arthralgias Integumentary/Breasts Skin/Breast: Denies rash Neurologic Neurologic: Denies dizziness and Denies paresthesias Allergic/Immunologic Allergic/Immunologic: Denies wheezing Physical Exam
[2022-09-14 11:00] VITALS: BP 139/82; PULSE 71; RESP 16; TEMP 36.9; O2SAT 98; BMI 43.8
[2022-09-14 11:38] VITALS: BP 139/82; PULSE 71; RESP 16; TEMP 36.9; O2SAT 98
== END 2022-09-14 11:39 | disposition home or self-care (01) ==
PROVIDERS: Emergency Provider Nurse Practitioner Family; PCP Family Medicine
DX: H10.31 Unspecified acute conjunctivitis, right eye (principal); I10 Essential (primary) hypertension; G47.30 Sleep apnea, unspecified
CPT/HCPCS: 99212; 99214; G0463

== ENCOUNTER → 2022-10-08 15:51 | Outpatient (CLI) | payer OTHER, SELFPAY ==
--- NOTE | 2022-10-08 15:52 | MM_ITS ---
PROCEDURE INFORMATION: Exam: MG Bilateral Screening 3D Mammography Exam date and time: 10/08/2022 3:51 PM Age: 47 years old Clinical indication: Screening. Her mother had breast cancer at age 71. History of benign bilateral stereotactic biopsies. TECHNIQUE: Imaging protocol: Bilateral Screening tomosynthesis and 2D mammography including computer-aided detection (CAD) when performed. COMPARISON: 1. MG MM DIG SCREENING MAMM BI W/CAD 08/04/2021 3:47 PM 2. MG MM DIG SCREENING MAMM BI W/CAD 08/01/2020 4:19 PM 3. MG MM DIG MAMM BI DX W/CAD 07/31/2019 1:07 PM 4. MG MM DIG MAMM DX UNILAT LT CAD 01/27/2019 1:23 PM FINDINGS: MAMMOGRAPHY: Breast composition: There are scattered areas of fibroglandular density. Mass: None. Architectural distortion: None. Calcifications: No suspicious calcifications. Asymmetric density: None. Skin thickening: None. Axillary adenopathy: None. Other: Bilateral biopsy clips. IMPRESSION: No mammographic evidence of malignancy. Annual screening is recommended unless otherwise clinically indicated. ASSESSMENT: BI-RADS Category 2: Benign
== END ==
PROVIDERS: PCP Family Medicine; Visit Provider Nurse Practitioner Obstetrics & Gynecology
DX: Z12.31 Encounter for screening mammogram for malignant neoplasm of breast (principal)
CPT/HCPCS: 77063; 77067

== ENCOUNTER → 2022-12-23 16:08 | Outpatient (CLI) | payer OTHER, SELFPAY ==
--- NOTE | 2022-12-23 16:12 | XR_ITS ---
FINAL REPORT CLINICAL HISTORY: Foot Pain in left, comparison FINDINGS: Right foot Three views were obtained. There is no acute fracture or dislocation. There are mild degenerative changes. Note is made of calcaneal spurs. No soft tissue abnormality is identified. IMPRESSION: Mild degenerative changes with calcaneal spurs. Reviewed, Interpreted and Dictated by Blayne Pierce III, MD Transcribed by Josefa Alexander Authenticated and [facility]
--- NOTE | 2022-12-23 16:12 | XR_ITS ---
FINAL REPORT CLINICAL HISTORY: Foot Pain mainly in heel FINDINGS: Left foot Three views were obtained. There is no acute fracture or dislocation. There are mild degenerative changes. Note is made of calcaneal spurs. No soft tissue abnormality is identified. IMPRESSION: Mild degenerative changes with calcaneal spurs. Reviewed, Interpreted and Dictated by Blayne Pierce III, MD Transcribed by Josefa Alexander Authenticated and [facility]
== END ==
PROVIDERS: PCP Family Medicine; Visit Provider Nurse Practitioner Family
DX: M79.672 Pain in left foot (principal); M79.671 Pain in right foot
CPT/HCPCS: 73630

== ENCOUNTER 2023-10-18 16:10 | Outpatient (CLI) | payer OTHER, SELFPAY ==
--- NOTE | 2023-10-18 16:10 | MM_ITS ---
PROCEDURE INFORMATION: Exam: MG Bilateral Screening 3D Mammography Exam date and time: 10/18/2023 4:01 PM Age: 48 years old Clinical indication: Screening. Her mother had breast cancer at age 71 and her maternal grandmother had breast cancer. TECHNIQUE: Imaging protocol: Bilateral Screening tomosynthesis and 2D mammography including computer-aided detection (CAD) when performed. COMPARISON: 1. MG MM DIG SCREENING MAMM BI W/CAD 10/08/2022 3:51 PM 2. MG MM DIG SCREENING MAMM BI W/CAD 08/04/2021 3:47 PM 3. MG MM DIG SCREENING MAMM BI W/CAD 08/01/2020 4:19 PM 4. MG MM DIG MAMM BI DX W/CAD 07/31/2019 1:07 PM FINDINGS: MAMMOGRAPHY: Breast composition: There are scattered areas of fibroglandular density. Mass: None. Architectural distortion: None. Calcifications: No suspicious calcifications. Asymmetric density: None. Skin thickening: None. Axillary adenopathy: None. IMPRESSION: No mammographic evidence of malignancy. Annual screening is recommended unless otherwise clinically indicated. ASSESSMENT: BI-RADS Category 1: Negative
== END 2023-10-18 23:59 | disposition home or self-care (01) ==
LOC: RAD 16:10
PROVIDERS: PCP Family Medicine; Visit Provider Nurse Practitioner Obstetrics & Gynecology
DX: Z12.31 Encounter for screening mammogram for malignant neoplasm of breast (principal)
CPT/HCPCS: 77063; 77067

== ENCOUNTER 2024-05-29 16:09 | Outpatient (CLI) | payer OTHER, SELFPAY ==
--- NOTE | 2024-05-29 16:14 | XR_ITS ---
PROCEDURE INFORMATION: Exam: XR Cervical Spine Exam date and time: 05/29/2024 4:16 PM Age: 49 years old Clinical indication: Radicular pain (radiculopathy); Cervical region; Additional info: Cervical radiculopathy TECHNIQUE: Imaging protocol: Radiologic exam of the cervical spine. Views: 2 or 3 views. COMPARISON: CR XR CHEST 2V 05/29/2024 4:16 PM FINDINGS: Bones/joints: [id number] degenerative disc disease noted at the C4-C5 through C6-C7 levels. Vertebral body heights intact. No acute fracture. Soft tissues: Unremarkable. IMPRESSION: Degenerative changes.
--- NOTE | 2024-05-29 16:14 | XR_ITS ---
PROCEDURE INFORMATION: Exam: XR Chest Exam date and time: 05/29/2024 4:16 PM Age: 49 years old Clinical indication: Chest wall pain TECHNIQUE: Imaging protocol: Radiologic exam of the chest. Views: 2 views. COMPARISON: CR XR CERVICAL SPINE 3V 05/29/2024 4:16 PM FINDINGS: Lungs: Calcified granulomas left upper lung adler. Lungs are otherwise clear. Pleural spaces: Unremarkable. No pleural effusion. No pneumothorax. Heart/Mediastinum: Unremarkable. No cardiomegaly. Bones/joints: Unremarkable. IMPRESSION: No acute disease.
== END 2024-05-29 23:59 | disposition home or self-care (01) ==
LOC: RAD 16:10
PROVIDERS: PCP Family Medicine; Visit Provider Family Medicine
DX: R07.89 Other chest pain (principal); M54.12 Radiculopathy, cervical region
CPT/HCPCS: 71046; 72040

== ENCOUNTER 2024-06-14 06:44 | Outpatient (CLI) | payer OTHER, SELFPAY ==
--- NOTE | 2024-06-14 | CA_ITS ---
APPROVED REPORT Exam: Pharmacologic Technologist: Jovana Liriano Ht: 5 ft 7 in Wt: 285 lbs BSA: 2.35 m2 HR: 74 bpm BP: 104/64 mmHg Stress Test Details Test: Lexiscan HR Resting HR: 74 bpm Max Heart Rate (APMHR): 171 bpm Max HR Achieved: 94 bpm Target HR (85% APMHR): 145 bpm % of APMHR: 55 Recovery HR: 88 bpm BP Resting BP: 104.0/64.0 mmHg Max BP: 113.0/58.0 mmHg Recovery BP: 99.0/61.0 mmHg ECG Resting ECG: Normal sinus rhythm Stress ECG Conclusion Symptoms: No chest pain. Arrhythmias/Ectopy: None ST-T Changes: < 1.[address] segment changes. Conclusion: Non-diagnostic Lexiscan stress. Electronically signed by : Valerie Bates MD 06/14/2024 12:06:32
--- NOTE | 2024-06-14 06:48 | NM_ITS ---
APPROVED REPORT Exam: Nuclear Stress Test Indication: htn, fm hx, c.p. Patient Location: Outpatient Stress Tech: Jovana Liriano NM Tech:Joanne DEIRDRE Weller RT (R)(N)(M) Ht: 5 ft 7 in Wt: 285 lbs Bra Size: 44dd HR: 74 bpm BP: 104/64 mmHg BSA: 2.35 m2 TID: 1.18 BMI: 44.6 History: htn, fm hx, c.p. Procedure: Patient received 0.4 mg of intravenous Lexiscan, resting heart rate 74 bpm, resting blood pressure 104/64 mmHg, with AdenosineLexiscan maximum heart rate achieved was 94 bpm which is % of the maximum predicted heart rate and blood pressure was 113/58 mmHg. With Lexiscan, patient denied any complaint of chest pain. Cardiac Stress and Resting SPECT Images: Cardiac Stress and Resting SPECT images were obtained using technetium 99m Myoview 31.6 mCi stress and 10.69 mCi at rest. Resting and stress imaging in supine and prone positions demonstrate no evidence of fixed or reversible perfusion defects. Gated image demonstrates normal global and regional LV systolic function. LVEF is calculated at 61%. Conclusion: No evidence of fixed or reversible perfusion defects. Gated image demonstrates normal global and regional LV systolic function. LVEF is calculated at 61%. Electronically signed by : Valerie Bates MD 06/14/2024 11:56:38
[2024-06-14] MEDS: SODIUM CHLORIDE 0.9% 10ML SYR (RAD ONLY) 10 ML IV ×2 (07:05→08:30)
--- NOTE | 2024-06-14 07:50 | CA_ITS ---
APPROVED REPORT EXAM: Comprehensive 2D, Doppler, and color-flow Echocardiogram Hair Colorist: Gladis Bennett RT(R) Ht: 5 ft 7 in Wt: 285lbs BSA: 2.35 BP: 124/76 mmHg Indications: CP, SOB, HTN, abn EKG, dizziness 2D Dimensions LA Volume 21.50 mL LA Volume Index 9.15 mL/m2 (M/F) 16-34 EF AP4 56.90 % GL Strain -30.7 % M-Mode Dimensions RVDd 2.61 cm (0.9-2.6) LA Diam 3.23 cm (1.9-4.0) LVDd 4.65 cm (3.5-5.7) LVDs 3.36 cm (3.5-5.7) IVSd 0.75 cm (0.6-1.1) PWd 0.72 cm (0.6-1.1) EF (Teich) 53.80% FS 27.70% EDV (Teich) 99.80 mL ESV (Teich) 46.10 mL LV Diastology E Decel Time 200 (160-240 msec) E/A Ratio 1.1 Mitral Valve MV E Max Juan Diego. 53.0 (40-130 cm/s) MV A Velocity 47.0 (40-130 cm/s) E/A Ratio 1.13 MV PHT 59.0 ms Tricuspid Valve TR P. Velocity 239.00 cm/s RAP Estimate 10.00 mmHg RVSP 32.80 mmHg Left Ventricle The left ventricle is normal size. The left ventricular systolic function is normal. The left ventricular ejection fraction is within the normal range. There is normal left ventricular wall thickness. There is normal LV segmental wall motion. The left ventricular diastolic function is normal. LVEF is 55%. Right Ventricle Right ventricle is mildly dilated. The right ventricular systolic function is normal. Atria The left atrium size is normal. The right atrium size is normal. There is no Doppler evidence of interatrial shunt. Aortic Valve The aortic valve opens well. There is no aortic valvular stenosis. No aortic regurgitation is present. Mitral Valve The mitral valve is normal in structure. No evidence of mitral valve stenosis. Mild mitral regurgitation. Tricuspid Valve Tricuspid valve is grossly normal in structure and function. Mild tricuspid regurgitation. RVSP is 20-25 mmHg. Pulmonic Valve The pulmonary valve is normal in structure. Trace pulmonic regurgitation. Great Vessels The aortic root is normal in size. IVC is normal in size and collapses >50% with inspiration. Pericardium There is no pericardial effusion. Other Information Study Quality: Fair Conclusion Normal biventricular systolic function. Mild RV dilation. Mild MR, mild TR. Electronically signed by : Valerie Bates MD 06/22/2024 14:41:14
[2024-06-14] MEDS: REGADENOSON 0.4MG/5ML SYRINGE 0.4 MG IV (08:30)
[2024-06-14] MEDS: ISOTOPE MYOVIEW (PER STUDY) 1 DOSE IV (09:21)
== END 2024-06-14 23:59 | disposition home or self-care (01) ==
LOC: RAD 06:45
PROVIDERS: PCP Family Medicine; Visit Provider Nurse Practitioner Family
DX: R07.89 Other chest pain (principal); R42 Dizziness and giddiness
CPT/HCPCS: 78452; 93017; 93018; 93306; A9502; J2785

== ENCOUNTER 2024-09-01 16:27 | Outpatient (CLI) | payer OTHER, SELFPAY ==
--- OUTSIDE RECORDS SUMMARY | 2024-09-01 16:30 | XMS_ITS | Data Portability ---
Author Organization [facility] Address [address] [place] [address] Care Team Providers Care It Business Process Architect Name Role Phone CONNIE BULL OTHER DIETER FLEMING Referring Provider XIOMY GONZALEZ Referring Provider [phone] Assessment Encounter Date Assessment Date Assessment LastModified by Organization Details LastModified Time 09/04/2021 09/04/2021 Mrs. Garcia presents for a check up. She has been followed for years at the [facility] clinic. She follows with her instrumentation designer in [facility] regularly as well. She had a discectomy in 2006 and still has some chronic back pain issues. She has had several benign breast biopsies. She had a uterine ablation about six years ago so no longer has bleeding. Blood pressure is controlled. Medications are reconciled. Vaccines are reviewed and she has not taken covid vaccines but was ill for quite some time with the covid last year. She still does not have a normal sense of smell. We encourage the vaccines. She should have a baseline screening colonoscopy as there is a family history of other malignancies. We encourage healthy diet and exercise. [email or web address] Not available 09/07/2021 14:41:28 11/02/2022 11/02/2022 Mrs. Garcia presents for a wellness check up. She is now working at [employer] in [place] and enjoys her job. She follows with her instrumentation designer in [facility] regularly as well. She had a discectomy in 2006 and still has some chronic back pain issues. She has had several benign breast biopsies. She had a uterine ablation about seven years ago so no longer has cyclic bleeding. She has been having episodes of lower sugars where she feels poorly. She has never been diagnosed with diabetes but her has it. 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 Glucose fasting was normal and an A1C is normal. However her TSH is slightly elevated consistent with subclinical hypothyroidism. It is probably reasonable to begin a trial of thyroid supplement as she may begin to feel better. Regular meals with adequate protein and avoidance of high glycemic meals should also help. Blood pressure is controlled. Medications are reconciled. Vaccines are reviewed and she has not taken covid vaccines but was ill for quite some time with the covid in 2020. We encourage the vaccines. She did have a baseline screening colonoscopy in December with a couple of small polyps so will be due again in 5 years. We encourage healthy diet and exercise. She should have follow up of the thyroid within 6 months. Not available 11/03/2022 22:40:33 03/03/2024 03/03/2024 Mrs. Garcia presents for a wellness check up. She is now working at [employer] in [place] and enjoys her job. She follows with her instrumentation designer in [facility] regularly as well. She had a discectomy in 2006 and still has some chronic back pain issues. She has had several benign breast biopsies. She had a uterine ablation about seven years ago so no longer has cyclic bleeding. She has basically normal labs other than a slight elevation of liver function tests most consistent with fatty liver. Cholesterol is at goal but triglycerides are mildly elevated. Last year she had a borderline TSH and we started a low dos thyroid supplement that she has been off of and the present thyroid lab test is normal so she does not need supplementation. Regular meals with adequate protein and avoidance of high glycemic meals should also help. Blood pressure is controlled. Medications are reconciled. Vaccines are reviewed and she has not taken covid vaccines but was ill for quite some time with the covid in 2020. We encourage the vaccines but she declines. She did take a flu vaccine at work. She did have a baseline screening colonoscopy in December 2021 with a couple of small polyps so will be due again in 3 years. A calculated ten year CV risk is 1.5%. We encourage healthy diet and exercise. Not available 03/05/2024 20:01:32 03/23/2024 03/23/2024 Anne has had a respiratory infection and has evidence for a left ear infection and maxillary sinus infection. Her cough from drainage bothers her especially at night. Not available 03/23/2024 16:34:02 05/25/2024 05/25/2024 Anne has had over 3 months of persistent chest pains since a respiratory illness in February. She has been reading about her symptoms and is concerned about pericarditis. Clinically she does have pleuritic pains and is worse if she tries to lie flat. She is not significantly short of breath but does not really exercise or exert herself. This pain is interfering with sleep as well. Her mother had rheumatoid arthritis so we did check inflammatory markers and they are not elevated. Diabetic screening is negative with a normal glycohemoglobin. She does also seem to have a cervical radiculopathy on the left. A cervical x ray is pending. She does have a strong family history of heart disease and although her pain is atypical she does have hypertension so we recommend a cardiology referral for completeness. In the meantime we will treat with a short course of corticosteroids for the possible cervical radiculopathy. Not available 2024 21:26:05 Plan of Treatment Reminders Order Date Submit Date Provider Last Modified By Organization Details Last Modified Time Details Appointments ANY 30 2024 03:30P M Sera Kwok MD Not available Not available Not available Lab C-reactiv e protein, quantitat sarika, serum or plasma 2024 025 [employer] [facility], [address], [place], [address], 05/26/2024 13:17:47 erythrocy te sedimenta tion rate by westergre n method 2024 025 [employer] [facility], [address], [place], [address], 05/26/2024 13:17:46 HbA1c (hemoglob in A1c), blood 2024 025 [employer] [facility], [address], [place], [address], 05/26/2024 13:17:46 rapid SARS CoV 2 Ag, QL IA, respirato ry specimen 2023 024 faina 5 In-Office Order, Internal Use Only DO Not Attach Compendium DO Not Attach Compendium, Do Not Delete/merge, [id number] 03/23/2024 16:08:40 HbA1c (hemoglob in A1c), blood 2022 023 [employer] [facility], [address], [place], [address], 11/03/2022 11:47:03 hepatitis C virus Ab, serum 2022 023 [employer] [facility], [address], [place], [address], 11/03/2022 11:47:04 Referral cardiolog ist referral 2024 025 NEL Bates MD, [address], [place], [address], 06/01/2024 16:00:20 Procedures colonosco py screening (PROC) - In October 212021 022 faina [address], [address], [address], [place], [address], 09/16/2021 16:13:19 Surgeries None recorded. Imaging XR, chest, 2 view 2024 025 [facility] (X-Ray), [address], [place], [address], 05/29/2024 16:39:19 XR, cervical spine, 2 or 3 view 2024 025 [facility] (X-Ray), [address], [place], [address], 05/29/2024 16:40:04 Medication Orders methylpre dnisolone 4 mg tablets in a dose pack 2024 025 [facility], [address] [place], [place] [address], [id number], 05/25/2024 17:15:20 dexametha sone sodium phosphate 4 mg/mL injection solution 2024 025 [facility], [address] [place] [address], AMADO Crawford, [id number], 05/25/2024 17:14:39 dexametha sone sodium phosphate 4 mg/mL injection solution 2023 024 Not available 03/23/2024 16:36:12 ceftriaxo ne 1 gram solution for injection 2023 024 [email or web address] [facility], [address] [place], [place] [address] [place], [id number], 05/25/2024 17:02:26 amoxicill in 875 mg-potass ium clavulana te 125 mg tablet 2023 024 [facility], [address] [place], [place] [address] [place], [id number], 03/23/2024 16:34:09 promethaz ine-DM 6.25 mg-15 mg/5 mL oral syrup 2023 024 [facility], [address] [place] [address] [place], [id number], 03/23/2024 16:34:13 bupropion HCl XL 150 mg 24 hr tablet, extended release 2023 024 [facility], [address] [place] [address] [place], [id number], 03/03/2024 16:11:51 levothyro xine 50 mcg tablet 2022 023 [facility], [address] [place] [address] [place], [id number], 03/03/2024 16:00:36 Patient TargetsNo targets recorded. Patient Instructions Encounter Date Encounter Id Patient Instructions Last Modified By Organization Details Last Modified Time 09/04/2021 [id number] learning about healthy weight Not available 09/07/2021 14:41:46 11/02/2022 [id number] learning about healthy weight Not available 11/02/2022 09:55:00 03/03/2024 [id number] learning about healthy weight Not available 03/03/2024 16:09:54 Reason for Referral Supervisor Curing Room Referral for At ypical chest pain Referring Physician: Sera Kwok, Family Medicine, Encounter Date: 05/25/2024 Results Created Date Observation Date Name Description Value Unit Range Abnormal Flag Note LastModifiedBy Organization Detail LastModifiedTime 11/03/1911/03/2022 LIPID PANEL , STAND CARROL cholesterol, total 194 mg/dL <200 normal Not Available [facility] [place] [facility] [address] [place], [address], 11/03/2022 11:37:44 11/03/1911/03/2022 LIPID PANEL , STAND CARROL HDL cholesterol 50 mg/dL > or = 50 normal Not Available [facility] [place] [facility] [address] [facility], [place], [address], 11/03/2022 11:37:44 11/03/19 23 11/03/2022 LIPID PANEL , STAND CARROL triglyceride s 186 mg/dL <150 high Not Available [address] [facility] [place] [facility] [address] [facility], [place], [address], 11/03/2022 11:37:44 11/03/19 23 11/03/2022 LIPID PANEL , STAND CARROL LDL-choleste rol 114 mg/dL _(gabe c) high Refer ence range : <100 Ana able range <100 mg/dL for prima ry preve ntion ; <70 mg/dL for patie nts with CHD or diabe tic patie nts with > or = 2 CHD risk facto rs. LDL-C is now calcu lated using the Ann n-Hop kins calcu latmiles n, which is a valid ated novel metho d provi ding zahra r accur acy than the Fried hugo equat ion in the estim ation of LDL-C . Ann n SS et al. VALERY. 2013; 310(1 9): 2061- 2068 (http ://ed ucati on.Qu Neofonie. com/f aq/FA Q164) Not Available [facility] [place] [facility] [address] [facility], [place], [address], 11/03/2022 11:37:44 11/03/19 23 11/03/2022 LIPID PANEL , STAND CARROL chol/HDLC ratio 3.9 (calc ) <5.0 normal Not Available [facility] [place] [facility] [address], [place], [address], 11/03/2022 11:37:44 11/03/19 23 11/03/2022 LIPID PANEL , STAND CARROL non HDL cholesterol 144 mg/dL _(gabe c) <130 high For patie nts with diabe julissa plus 1 major ASCVD risk facto r, treat ing to a non-H DL-C goal of <100 mg/dL (LDL- C of <70 mg/dL ) is consi dered a thera peuti c optio n. Not Available [facility] [place] [facility] [address], [place], [address], 11/03/2022 11:37:44 11/03/19 23 11/03/2022 COMPR EHENS SARIKA METAB OLIC PANEL glucose 93 mg/dL 65-99 normal Fasti ng refer ence inter caroline Not Available [facility] [place] [facility] [address], [place], [address], 11/03/2022 11:37:45 11/03/19 23 11/03/2022 COMPR EHENS SARIKA METAB OLIC PANEL urea nitrogen (BUN) 13 mg/dL 7-25 normal Not Available [facility] [place] [facility] [address] [place], [address], 11/03/2022 11:37:45 11/03/19 23 11/03/2022 COMPR EHENS SARIKA METAB OLIC PANEL creatinine 0.75 mg/dL 0.50-0 .99 normal Not Available [facility] [place] [facility] [address] [place], [address], 11/03/2022 11:37:45 11/03/19 23 11/03/2022 COMPR EHENS SARIKA METAB OLIC PANEL eGFR 99 mL/mi n/1.7 3m2 > or = 60 normal The eGFR is based on the CKD-E PI 2020 equat ion. To calcu late the new eGFR from a previ ous Creat inine or Cysta tin C resul t, go to https ://gabriela carter.louis hsieh/yordy panchal/ kdoqi /gfr% 5Fcal culat or Not Available [facility] [place] [facility] [address] [place], [address], 11/03/2022 11:37:45 11/03/19 23 11/03/2022 COMPR EHENS SARIKA METAB OLIC PANEL BUN/creatini ne ratio NOT APPLIC ABLE (calc ) 6-22 Not Available [facility] [place] [facility] [address] [place], [address], 11/03/2022 11:37:45 11/03/19 23 11/03/2022 COMPR EHENS SARIKA METAB OLIC PANEL sodium 139 mmol/ L 135-14 6 normal Not Available [facility] [place] [facility] [address] [place], [address], 11/03/2022 11:37:45 11/03/19 23 11/03/2022 COMPR EHENS SARIKA METAB OLIC PANEL potassium 4.1 mmol/ L 3.5-5. 3 normal Not Available [facility] [address] [place], [address], 11/03/2022 11:37:45 11/03/19 23 11/03/2022 COMPR EHENS SARIKA METAB OLIC PANEL chloride 105 mmol/ L 98-110 normal Not Available [facility] [address] [place], [address], 11/03/2022 11:37:45 11/03/19 23 11/03/2022 COMPR EHENS SARIKA METAB OLIC PANEL carbon dioxide 26 mmol/ L 20-32 normal Not Available [facility] [address] [place], [address], 11/03/2022 11:37:45 11/03/19 23 11/03/2022 COMPR EHENS SARIKA METAB OLIC PANEL calcium 9.4 mg/dL 8.6-10 .2 normal Not Available [facility] [address] [place], [address], 11/03/2022 11:37:45 11/03/19 23 11/03/2022 COMPR EHENS SARIKA METAB OLIC PANEL protein, total 7.3 g/dL 6.1-8. 1 normal Not Available [facility] [address] [place], [address], 11/03/2022 11:37:45 11/03/19 23 11/03/2022 COMPR EHENS SARIKA METAB OLIC PANEL albumin 4.1 g/dL 3.6-5. 1 normal Not Available [facility] [address] [place], [address], 11/03/2022 11:37:45 11/03/19 23 11/03/2022 COMPR EHENS SARIKA METAB OLIC PANEL globulin 3.2 g/dL_ (calc ) 1.9-3. 7 normal Not Available [address] [facility] [address] [place], [address], 11/03/2022 11:37:45 11/03/19 23 11/03/2022 COMPR EHENS SARIKA METAB OLIC PANEL albumin/glob ulin ratio 1.3 (calc ) 1.0-2. 5 normal Not Available [facility] [employer] [facility] [address] [place], [address], 11/03/2022 11:37:45 11/03/19 23 11/03/2022 COMPR EHENS SARIKA METAB OLIC PANEL bilirubin, total 0.7 mg/dL 0.2-1. 2 normal Not Available [facility] [employer] [facility] [address] [place], [address], 11/03/2022 11:37:45 11/03/19 23 11/03/2022 COMPR EHENS SARIKA METAB OLIC PANEL alkaline phosphatase 92 U/L 31-125 normal Not Available [employer] [facility] [address] [place], [address], 11/03/2022 11:37:45 11/03/19 23 11/03/2022 COMPR EHENS SARIKA METAB OLIC PANEL AST 46 U/L 10-35 high Not Available [address] [facility] [address] [place], [address], 11/03/2022 11:37:45 11/03/19 23 11/03/2022 COMPR EHENS SARIKA METAB OLIC PANEL ALT 47 U/L 6-29 high Not Available [address] [facility] [place], [address], 11/03/2022 11:37:45 11/03/19 23 11/03/2022 TSH TSH 6.04 mIU/L high Refer ence Range > or = 20 Years 0.40- 4.50 Pregn jack Range s First trime ster 0.26- 2.66 Secon d trime ster 0.55- 2.73 Third trime ster 0.43- 2.91 Not Available [facility] [place] [facility] [address] [facility] [place], [address], 11/03/2022 11:37:45 11/03/19 23 11/03/2022 CBC (INCL UDES DIFF/ PLT) white blood cell count 6.4 thous and/u L 3.8-10 .8 normal Not Available [facility] [place] [facility] [address] [facility] [place], [address], 11/03/2022 11:37:46 11/03/19 23 11/03/2022 CBC (INCL UDES DIFF/ PLT) red blood cell count 4.89 ania on/uL 3.80-5 .10 normal Not Available [facility] [place] [facility] [address] [facility] [place], [address], 11/03/2022 11:37:46 11/03/19 23 11/03/2022 CBC (INCL UDES DIFF/ PLT) hemoglobin 14.9 g/dL 11.7-1 5.5 normal Not Available [facility] [address] [facility] [place], [address], 11/03/2022 11:37:46 11/03/19 23 11/03/2022 CBC (INCL UDES DIFF/ PLT) hematocrit 45.2 % 35.0-4 5.0 high Not Available [facility] [address] [facility] [place], [address], 11/03/2022 11:37:46 11/03/19 23 11/03/2022 CBC (INCL UDES DIFF/ PLT) MCV 92.4 fL 80.0-1 00.0 normal Not Available [facility] [address] [facility] [place], [address], 11/03/2022 11:37:46 11/03/19 23 11/03/2022 CBC (INCL UDES DIFF/ PLT) MCH 30.5 pg 27.0-3 3.0 normal Not Available [facility] [place] [facility] [address] [facility] [facility], [place], [address], 11/03/2022 11:37:46 11/03/19 23 11/03/2022 CBC (INCL UDES DIFF/ PLT) MCHC 33.0 g/dL 32.0-3 6.0 normal Not Available [facility] [place] [facility] [address] [facility], [place], [address], 11/03/2022 11:37:46 11/03/19 23 11/03/2022 CBC (INCL UDES DIFF/ PLT) RDW 12.1 % 11.0-1 5.0 normal Not Available [facility] [place] [facility] [address], [place], [address], 11/03/2022 11:37:46 11/03/19 23 11/03/2022 CBC (INCL UDES DIFF/ PLT) platelet count 220 thous and/u L 140-40 0 normal Not Available [facility] [place] [facility] [address] [facility], [place], [address], 11/03/2022 11:37:46 11/03/19 23 11/03/2022 CBC (INCL UDES DIFF/ PLT) MPV 8.4 fL 7.5-12 .5 normal Not Available [facility] [address], [place], [address], 11/03/2022 11:37:46 11/03/19 23 11/03/2022 CBC (INCL UDES DIFF/ PLT) absolute neutrophils 3258 cells /uL 1500-7 800 normal Not Available [facility] [address] [facility], [place], [address], 11/03/2022 11:37:46 11/03/19 23 11/03/2022 CBC (INCL UDES DIFF/ PLT) absolute lymphocytes 2643 cells /uL 850-39 00 normal Not Available [facility] [place] [facility] [address], [place], [address], 11/03/2022 11:37:46 11/03/19 23 11/03/2022 CBC (INCL UDES DIFF/ PLT) absolute monocytes 378 cells /uL 200-95 0 normal Not Available [facility] [place] [facility] [address], [place], [address], 11/03/2022 11:37:46 11/03/19 23 11/03/2022 CBC (INCL UDES DIFF/ PLT) absolute eosinophils 102 cells /uL 15-500 normal Not Available [facility] [place] [facility] [address], [place], [address], 11/03/2022 11:37:46 11/03/19 23 11/03/2022 CBC (INCL UDES DIFF/ PLT) absolute basophils 19 cells /uL 0-200 normal Not Available [facility] [place] [facility] [address], [place], [address], 11/03/2022 11:37:46 11/03/19 23 11/03/2022 CBC (INCL UDES DIFF/ PLT) neutrophils 50.9 % normal Not Available [facility] [place] [facility] [address], [place], [address], 11/03/2022 11:37:46 11/03/19 23 11/03/2022 CBC (INCL UDES DIFF/ PLT) lymphocytes 41.3 % normal Not Available [facility] [place] [facility] [address], [place], [address], 11/03/2022 11:37:46 11/03/19 23 11/03/2022 CBC (INCL UDES DIFF/ PLT) monocytes 5.9 % normal Not Available [facility] [place] [facility] [address], [place], [address], 11/03/2022 11:37:46 11/03/19 23 11/03/2022 CBC (INCL UDES DIFF/ PLT) eosinophils 1.6 % normal Not Available [facility] [place] [facility] [address], [place], [address], 11/03/2022 11:37:46 11/03/19 23 11/03/2022 CBC (INCL UDES DIFF/ PLT) basophils 0.3 % normal Not Available [facility] [place] [facility] [address] [facility] [facility], [place], [address], 11/03/2022 11:37:46 11/03/19 23 11/03/2022 HEMOG LOBIN A1C hemoglobin A1C 5.5 %_of_ total _HGB <5.7 normal For the purpo se of rome nettles for the prese nce of diabe julissa: <5.7% Consi stent with the absen ce of diabe julissa 5.7-6 .4% Consi stent with incre ased risk for diabe julissa (pred iabet es) > or =6.5% Consi stent with diabe julissa This assay resul t is consi stent with a decre ased risk of diabe julissa. Curre ntly, no conse nsus exist s jamey ann use of hemog lobin A1c for diagn osis of diabe julissa in child sandra. Accor ding to Ameri can Diabe julissa Assoc iatio n (ADA) guide lines , hemog lobin A1c <7.0% repre sents optim al contr ol in non-p regna nt diabe tic patie nts. Diffe rent metri cs may apply to speci fic patie nt popul ation s. Stand ards of Medic al Care in Diabe julissa(A DA). Not Available [facility] [place] [facility] [address], [place], [address], 11/03/2022 11:47:03 11/03/19 23 11/03/2022 HEPAT ITIS C AB W/REF L TO HCV RNA, QN, PCR hepatitis C antibody NON-RE ACTIVE non-re active normal HCV antib clemente was non-r eacti ve. There is no labor atory evide nce of HCV infec tion. In most cases , no furth er actio n is requi red. Howev er, if recen t HCV expos ure is suspe cted, a test for HCV RNA (test code 29499 ) is sugkarime dond. For addit ional infor alpesh sellers pleas e refer to http: //[facility] catmiles n.que stdia gnost ics.c om/fa q/FAQ 22v1 (This link is being provi ded for infor alpesh lindquist/ educa kyaw l purpo ses only. ) Not Available [facility] [place] [facility] [address] [facility] [place], [address], 11/03/2022 11:47:04 02/24/2002/25/2024 LIPID PANEL , STAND CARROL cholesterol, total 170 mg/dL <200 normal Not Available [facility] [place] [facility] [address] [facility] [place], [address], 02/25/2024 08:58:58 02/24/20 24 02/25/2024 LIPID PANEL , STAND CARROL HDL cholesterol 40 mg/dL > or = 50 low Not Available [facility] [place] [facility] [address] [place], [address], 02/25/2024 08:58:58 02/24/2002/25/2024 LIPID PANEL , STAND CARROL triglyceride s 197 mg/dL <150 high Not Available [facility] [place] [facility] [address] [place], [address], 02/25/2024 08:58:58 02/24/2002/25/2024 LIPID PANEL , STAND CARROL LDL-choleste rol 98 mg/dL _(gabe c) normal Refer ence range : <100 Ana able range <100 mg/dL for prima ry preve ntion ; <70 mg/dL for patie nts with CHD or diabe tic patie nts with > or = 2 CHD risk facto rs. LDL-C is now calcu lated using the Ann n-Hop kins adityau frederick n, which is a valid ated novel anniao marivel goetzi ding zahra r accur acy than the Fried hugo equat ion in the estim ation of LDL-C . Ann sellers SS et al. VALERY. 2013; 310(1 9): 2061- 2068 (http ://ed ucati on.Qu estDi Cyprotexs. com/f aq/FA Q164) Not Available [facility] [place] [facility] [address] [facility], [place], [address], 02/25/2024 08:58:58 02/24/20 24 02/25/2024 LIPID PANEL , STAND CARROL chol/HDLC ratio 4.3 (calc ) <5.0 normal Not Available [facility] [place] [facility] [address] [facility], [place], [address], 02/25/2024 08:58:58 02/24/20 24 02/25/2024 LIPID PANEL , STAND CARROL non HDL cholesterol 130 mg/dL _(gabe c) <130 high For patie nts with diabe julissa plus 1 major ASCVD risk facto r, treat ing to a non-H DL-C goal of <100 mg/dL (LDL- C of <70 mg/dL ) is consi dered a thera peuti c optio n. Not Available [facility] [place] [facility] [address], [place], [address], 02/25/2024 08:58:58 02/24/20 24 02/25/2024 COMPR EHENS SARIKA METAB OLIC PANEL glucose 100 mg/dL 65-99 high Fasti ng refer ence inter caroline For someo ne witho ut known diabe julissa, a gluco se value betwe en 100 and 125 mg/dL is consi stent with predi abete s and shoul d be confi rmed with a follo w-up test. Not Available [facility] [address] [facility] [place], [address], 02/25/2024 08:58:59 02/24/20 24 02/25/2024 COMPR EHENS SARIKA METAB OLIC PANEL urea nitrogen (BUN) 9 mg/dL 7-25 normal Not Available [facility] [address] [place], [address], 02/25/2024 08:58:59 02/24/20 24 02/25/2024 COMPR EHENS SARIKA METAB OLIC PANEL creatinine 0.73 mg/dL 0.50-0 .99 normal Not Available [facility] [address] [place], [address], 02/25/2024 08:58:59 02/24/20 24 02/25/2024 COMPR EHENS SARIKA METAB OLIC PANEL eGFR 101 mL/mi n/1.7 3m2 > or = 60 normal Not Available [facility] [address] [place], [address], 02/25/2024 08:58:59 02/24/2002/25/2024 COMPR EHENS SARIKA METAB OLIC PANEL BUN/creatini ne ratio SEE NOTE: (calc ) 6-22 Not Repor esperanza: BUN and Creat inine are withi n refer ence range . Not Available [facility] [address] [facility] [place], [address], 02/25/2024 08:58:59 02/24/20 24 02/25/2024 COMPR EHENS SARIKA METAB OLIC PANEL sodium 140 mmol/ L 135-14 6 normal Not Available [facility] [place], [address], 02/25/2024 08:58:59 02/24/20 24 02/25/2024 COMPR EHENS SARIKA METAB OLIC PANEL potassium 4.2 mmol/ L 3.5-5. 3 normal Not Available [facility] [place] [facility] [address] [facility] [place], [address], 02/25/2024 08:58:59 02/24/2002/25/2024 COMPR EHENS SARIKA METAB OLIC PANEL chloride 108 mmol/ L 98-110 normal Not Available [facility] [address] [place], [address], 02/25/2024 08:58:59 02/24/2002/25/2024 COMPR EHENS SARIKA METAB OLIC PANEL carbon dioxide 24 mmol/ L 20-32 normal Not Available [facility] [address] [place], [address], 02/25/2024 08:58:59 02/24/20 24 02/25/2024 COMPR EHENS SARIKA METAB OLIC PANEL calcium 9.0 mg/dL 8.6-10 .2 normal Not Available [facility] [address] [place] [address], [address], 02/25/2024 08:58:59 02/24/20 24 02/25/2024 COMPR EHENS SARIKA METAB OLIC PANEL protein, total 6.6 g/dL 6.1-8. 1 normal Not Available [facility] [address] [place] [address], [address], 02/25/2024 08:58:59 02/24/20 24 02/25/2024 COMPR EHENS SARIKA METAB OLIC PANEL albumin 3.7 g/dL 3.6-5. 1 normal Not Available [facility] [address] [place] [address], [address], 02/25/2024 08:58:59 02/24/20 24 02/25/2024 COMPR EHENS SARIKA METAB OLIC PANEL globulin 2.9 g/dL_ (calc ) 1.9-3. 7 normal Not Available [facility] [address] [place], [address], 02/25/2024 08:58:59 02/24/20 24 02/25/2024 COMPR EHENS SARIKA METAB OLIC PANEL albumin/glob ulin ratio 1.3 (calc ) 1.0-2. 5 normal Not Available [facility] [address] [place], [address], 02/25/2024 08:58:59 02/24/20 24 02/25/2024 COMPR EHENS SARIKA METAB OLIC PANEL bilirubin, total 0.6 mg/dL 0.2-1. 2 normal Not Available [facility] [address] [place], [address], 02/25/2024 08:58:59 02/24/20 24 02/25/2024 COMPR EHENS SARIKA METAB OLIC PANEL alkaline phosphatase 84 U/L 31-125 normal Not Available [facility] [place] [facility] [address] [place], [address], 02/25/2024 08:58:59 02/24/20 24 02/25/2024 COMPR EHENS SARIKA METAB OLIC PANEL AST 38 U/L 10-35 high Not Available [facility] [address] [place], [address], 02/25/2024 08:58:59 02/24/20 24 02/25/2024 COMPR EHENS SARIKA METAB OLIC PANEL ALT 32 U/L 6-29 high Not Available [facility] [place] [facility] [address] [place], [address], 02/25/2024 08:58:59 02/24/20 24 02/25/2024 TSH TSH 1.75 mIU/L normal Refer ence Range > or = 20 Years 0.40- 4.50 Pregn jack Range s First trime ster 0.26- 2.66 Secon d trime ster 0.55- 2.73 Third trime ster 0.43- 2.91 Not Available [facility] [address] [facility] [place], [address], 02/25/2024 08:58:59 02/24/20 24 02/25/2024 CBC (INCL UDES DIFF/ PLT) white blood cell count 5.0 thous and/u L 3.8-10 .8 normal Not Available [facility] [address] [facility] [place], [address], 02/25/2024 08:59:00 02/24/2002/25/2024 CBC (INCL UDES DIFF/ PLT) red blood cell count 4.79 ania on/uL 3.80-5 .10 normal Not Available [facility] [address] [facility] [place], [address], 02/25/2024 08:59:00 02/24/2002/25/2024 CBC (INCL UDES DIFF/ PLT) hemoglobin 14.4 g/dL 11.7-1 5.5 normal Not Available [facility] [address] [facility] [place], [address], 02/25/2024 08:59:00 02/24/2002/25/2024 CBC (INCL UDES DIFF/ PLT) hematocrit 44.6 % 35.0-4 5.0 normal Not Available [facility] [facility] [place], [address], 02/25/2024 08:59:00 02/24/2002/25/2024 CBC (INCL UDES DIFF/ PLT) MCV 93.1 fL 80.0-1 00.0 normal Not Available [facility] [address] [facility] [place], [address], 02/25/2024 08:59:00 02/24/20 24 02/25/2024 CBC (INCL UDES DIFF/ PLT) MCH 30.1 pg 27.0-3 3.0 normal Not Available [facility] [place] [facility] [address] [facility] [place], [address], 02/25/2024 08:59:00 02/24/20 24 02/25/2024 CBC (INCL UDES DIFF/ PLT) MCHC 32.3 g/dL 32.0-3 6.0 normal For adult s, a sligh t decre ase in the calcu lated MCHC value (in the range of 30 to 32 g/dL) is most likel y not clini leodan signi fican t; wolfev er, it shoul d be inter prete d with cauti on in corre [facility] n with other red cell jacky eters and the patie nt's clini gabe condi tion. Not Available [facility] [place] [facility] [address] [facility] [place], [address], 02/25/2024 08:59:00 02/24/20 24 02/25/2024 CBC (INCL UDES DIFF/ PLT) RDW 12.0 % 11.0-1 5.0 normal Not Available [facility] [place] [facility] [address] [facility] [place], [address], 02/25/2024 08:59:00 02/24/20 24 02/25/2024 CBC (INCL UDES DIFF/ PLT) platelet count 251 thous and/u L 140-40 0 normal Not Available [facility] [place] [facility] [address] [facility], [address], 02/25/2024 08:59:00 02/24/20 24 02/25/2024 CBC (INCL UDES DIFF/ PLT) MPV 9.3 fL 7.5-12 .5 normal Not Available [facility] [place] [facility] [address] [facility], [address], 02/25/2024 08:59:00 02/24/20 24 02/25/2024 CBC (INCL UDES DIFF/ PLT) absolute neutrophils 2995 cells /uL 1500-7 800 normal Not Available [facility] [place] [facility] [address], [place], [address], 02/25/2024 08:59:00 02/24/20 24 02/25/2024 CBC (INCL UDES DIFF/ PLT) absolute lymphocytes 1575 cells /uL 850-39 00 normal Not Available [facility] [place] [facility] [address], [place], [address], 02/25/2024 08:59:00 02/24/20 24 02/25/2024 CBC (INCL UDES DIFF/ PLT) absolute monocytes 350 cells /uL 200-95 0 normal Not Available [facility] [place] [facility] [address], [place], [address], 02/25/2024 08:59:00 02/24/20 24 02/25/2024 CBC (INCL UDES DIFF/ PLT) absolute eosinophils 60 cells /uL 15-500 normal Not Available [facility] [place] [facility] [address], [place], [address], 02/25/2024 08:59:00 02/24/20 24 02/25/2024 CBC (INCL UDES DIFF/ PLT) absolute basophils 20 cells /uL 0-200 normal Not Available [facility] [place] [facility] [address], [place], [address], 02/25/2024 08:59:00 02/24/20 24 02/25/2024 CBC (INCL UDES DIFF/ PLT) neutrophils 59.9 % normal Not Available [facility] [place] [facility] [address], [place], [address], 02/25/2024 08:59:00 02/24/20 24 02/25/2024 CBC (INCL UDES DIFF/ PLT) lymphocytes 31.5 % normal Not Available [facility] [place] [facility] [address], [place], [address], 02/25/2024 08:59:00 02/24/20 24 02/25/2024 CBC (INCL UDES DIFF/ PLT) monocytes 7.0 % normal Not Available [facility] [place] [facility] [address] [facility], [place], [address], 02/25/2024 08:59:00 02/24/20 24 02/25/2024 CBC (INCL UDES DIFF/ PLT) eosinophils 1.2 % normal Not Available [facility] [place] [facility] [address] [facility], [place], [address], 02/25/2024 08:59:00 02/24/20 24 02/25/2024 CBC (INCL UDES DIFF/ PLT) basophils 0.4 % normal Not Available [facility] [place] [facility] [address] [facility], [place], [address], 02/25/2024 08:59:00 03/23/20 24 03/23/2024 rapid SARS CoV 2 Ag, QL IA, respi rator y speci men rapid SARS CoV 2 Ag, QL IA, respiratory specimen negati ve Not Available In-Office Order Internal Use Only DO Not Attach Compendium DO Not Attach Compendium, Do Not Delete/merge, [id number] 03/23/2024 16:08:18 05/25/19 25 05/26/2024 HEMOG LOBIN A1C hemoglobin A1C 5.5 %_of_ total _HGB <5.7 normal For the purpo se of [place] tho for the prese nce of diabe julissa: <5.7% Consi stent with the absen ce of diabe julissa 5.7-6 .4% Consi stent with incre ased risk for diabe julissa (pred iabet es) > or =6.5% Consi stent with diabe julissa This assay resul t is consi stent with a decre ased risk of diabe julissa. Curre ntly, no conse nsus exist s jamey ann use of hemog lobin A1c for diagn osis of diabe julissa in child sandra. Accor seth to Ameri can Diabe julissa Assoc iatio n (ADA) guide lines , hemog lobin A1c <7.0% repre sents optim al contr ol in non-p regna nt diabe tic patie nts. Diffe rent metri cs may apply to speci fic patie nt popul ation s. Stand ards of Medic al Care in Diabe julissa(A DA). Not Available [facility] [place] [facility] [address] [facility], [place], [address], 05/26/2024 13:17:46 05/25/19 25 05/26/2024 SED RATE BY MODIF IED WESTE RGREN sed rate by modified westergren 11 mm/h < or = 20 normal Not Available [facility] [place] [facility] [address] [facility], [place], [address], 05/26/2024 13:17:46 05/25/19 25 05/26/2024 C-SENTHIL CTIVE PROTE IN C-reactive protein 4.7 mg/L <8.0 normal Not Available [facility] [place] [facility] [address] [facility], [place], [address], 05/26/2024 13:17:47 08/06/19 22 08/04/2021 MAMMO , scree tho, digit al, bilat eral No observ ation record ed. [address], [place], [address], 09/04/2021 17:01:48 10/14/19 23 10/08/2022 MAMMO , scree tho, digit al, bilat eral No observ ation record ed. [address], [place], [address], 11/02/2022 09:39:51 12/24/19 23 12/23/2022 XR, foot, 3 or more view No observ ation record ed. [address], [place], [address], 03/03/2024 15:41:22 12/24/19 23 12/23/2022 XR, foot, 3 or more view No observ ation record ed. [address], [place], [place], [address], 03/03/2024 15:41:22 10/21/19 24 10/18/2023 MAMMO , scree tho, digit al, bilat eral No observ ation record ed. [address], [place], [place], [address], 03/03/2024 15:41:22 05/29/19 25 05/29/2024 XR, chest , 2 view No observ ation record ed. [address], [place], [place], [address], 05/31/2024 07:42:04 05/29/19 25 05/29/2024 XR, cervi gabe spine , 2 or 3 view No observ ation record ed. [address], [place], [place], [address], 05/31/2024 07:55:14 06/14/19 25 06/14/2024 nucle ar stres s test No observ ation record ed. [address], [place], [place], [address], 07/02/2024 15:47:18 06/14/19 25 06/14/2024 cardi ac stres s test No observ ation record ed. [address], [place], [place], [address], 07/02/2024 15:48:39 06/24/19 25 06/14/2024 US, echoc ardio gram No observ ation record ed. [address], [place], [address], 07/02/2024 15:49:18 Result Notes None recorded. Problems Name Problem SNOMED Code Status Onset Date Resolution Date Notes Provider Name and Address Organization Details Recorded Time Benign essential hypertension 1655071 Consuelo Kwok MD [address] [address], [place] - [facility] 6 16:01:40 Allergic rhinitis 03119904 Active Sera Kwok MD [address] [address], [place] - [facility] 5 15:14:58 Backache [id number] Consuelo Kwok MD [address] [address], [place] - [facility] 6 15:13:28 Mammography abnormal [id number] Consuelo Kwok MD [address] [address], [place] - [facility] 6 15:35:41 Cough [id number] Consuelo Kwok MD [address] [address], [place] - [facility] 3 07:49:30 Disorder of shoulder 844422281 Consuelo Kwok MD [address] [address], [place] - [facility] 5 15:21:02 Wheezing 66140989 Consuelo Kwok MD [address] [address], [place] - [facility] 5 07:30:44 Depressive disorder [id number] Consuelo Kwok MD [address] [address], [place] - [facility] 5 08:06:42 Low back strain 567477587 Active Sera Kwok MD [address] [address], [place] [facility] 6 09:36:37 Allergic reaction to wasp sting 483240348 Active Sera Kwok MD [address] [address], [place] [facility] 5 15:13:35 Candidiasis of skin 29414611 Active Sera Kwok MD [address] [place] [facility] 6 07:50:42 Problem Notes None recorded. Procedures Surgical History Date Name Laterality Status Provider Name and Address Organization Details Recorded Time 01/10/20 22 Colonoscopy completed Sera Kwok MD [address] [address], [place] [facility] 11/02/2022 09:40:32 01/06/20 18 stereotactically guided core needle biopsy completed Sera Kwok MD [address] [place] [facility] 09/04/2021 16:47:35 11/17/19 13 Breast Biopsy completed Sera Kwok MD [address] [address], [facility] 11/30/2012 15:35:02 04/19/19 07 Back Surgery completed Sera Kwok MD [address] [address], [place] [facility] 11/30/2012 15:35:02 08/20/19 05 Caesarean Section completed Sera Kwok MD [address] [address], [facility] 11/30/2012 15:35:02 04/19/19 05 Tubal Ligation completed Sera Kwok MD [address] [facility], [address], [place], [address], [facility] 11/30/2012 15:35:02 destruction of lesion of uterus completed Sera Kwok MD [address] [facility], [address], [place], [address], [facility] 09/04/2021 17:03:57 Imaging Results Imaging Date Name Status LastModified by Organization Details LastModified Time 08/04/2021 MAMMO, screening, digital, bilateral completed [address], [place], [address], 09/04/2021 17:01:48 10/08/2022 MAMMO, screening, digital, bilateral completed [address], [place], [address], 11/02/2022 09:39:51 12/23/2022 XR, foot, 3 or more view completed [address], [place], [address], 03/03/2024 15:41:22 12/23/2022 XR, foot, 3 or more view completed [address], [place], [address], 03/03/2024 15:41:22 10/18/2023 MAMMO, screening, digital, bilateral completed [address], [place], [address], 03/03/2024 15:41:22 05/29/2024 XR, chest, 2 view completed [address], [place], [address], 05/31/2024 07:42:04 05/29/2024 XR, cervical spine, 2 or 3 view completed [address], [place], [address], 05/31/2024 07:55:14 06/14/2024 nuclear stress test completed [address], [place], [address], 07/02/2024 15:47:18 06/14/2024 cardiac stress test completed [address], [place], [address], 07/02/2024 15:48:39 06/14/2024 US, echocardiogram completed [address], [place], [address], 07/02/2024 15:49:18 Procedure Notes None recorded. Medical Equipment None Reported. Allergies No known drug allergies Medications Name Sig Start Date Stop Date Status Note LastModified by Organization Details LastModified Time losartan 50 mg tablet TAKE 1 TABLET BY MOUTH ONCE DAILY 09/04 completed Not Available Not Available Not Available carisoprodo l 350 mg tablet TAKE 1 TABLET 4 TIMES A DAY 05/20 completed Not Available Not Available Not Available cyclobenzap rine 10 mg tablet Take 1 tablet 3 times a day by oral route as needed. active Not Available Not Available No t Available promethazin e-DM 6.25 mg-15 mg/5 mL oral syrup Take 5 mL every 4 hours by oral route as needed. active Not Available Not Available No t Available norgestimat e 0.25 mg-ethinyl estradiol 0.035 mg tablet 05/20 completed Not Available Not Available Not Available prednisone 10 mg tablet 05/20 completed Not Available Not Available Not Available azithromyci n 250 mg tablet TAKE 2 TABLETS (500 MG) BY ORAL ROUTE ONCE DAILY FOR 1 DAY THEN 1 TABLET (250 MG) BY ORAL ROUTE ONCE DAILY FOR 4 DAYS 06/10 completed Not Available Not Available Not Available ibuprofen 800 mg tablet TAKE ONE TABLET BY MOUTH 3 TIMES A DAY NEEDED 03/03 completed Not Available Not Available Not Available benzonatate 200 mg capsule Take 1 capsule 3 times a day by oral route as needed. 06/10 completed Not Available Not Available Not Available hydrocodone 5 mg-acetamin ophen 325 mg tablet 05/20 completed Not Available Not Available Not Available meclizine 12.5 mg tablet as needed for vertigo active Not Available Not Available No t Available ciprofloxac in 500 mg tablet 05/20 completed Not Available Not Available Not Available tramadol 50 mg tablet 05/20 completed Not Available Not Available Not Available ondansetron 8 mg disintegrat ing tablet DISSOLVE ONE TABLET IN MOUTH EVERY 8 HOURS NEEDED 09/04 completed Not Available Not Available Not Available meloxicam 7.5 mg tablet 03/03 completed Not Available Not Available Not Available oxycodone-a cetaminophe n 5 mg-325 mg tablet Take 1 tablet every 6 hours by oral route as needed for 3 days. 05/20 completed Not Available Not Available Not Available propranolol 10 mg tablet Take 1 tablet 3 times a day by oral route as needed. 09/04 completed Not Available Not Available Not Available ceftriaxone 1 gram solution for injection Take 0.25 g by injection route. 05/25 completed Not Available Not Available Not Available famotidine 20 mg tablet TAKE ONE TABLET BY MOUTH 2 TIMES A DAY NEEDED active Not Available Not Available No t Available lorazepam 0.5 mg tablet Take 2 tablets 3 times a day by oral route as needed. 06/10 completed Not Available Not Available Not Available benzonatate 100 mg capsule TAKE 1 CAPSULE BY MOUTH THREE TIMES DAILY NEEDED FOR COUGH 05/20 completed Not Available Not Available Not Available levothyroxi ne 50 mcg tablet Take 1 tablet every day by oral route in the morning for 90 days. 03/03 completed Not Available Not Available Not Available hydrocodone 7.5 mg-acetamin ophen 325 mg tablet Take 1 tablet every 6-8 hours by oral route as needed for 5 days. active Not Available Not Available No t Available erythromyci n 5 mg/gram (0.5 %) eye ointment 11/02 completed Not Available Not Available Not Available esomeprazol e magnesium 40 mg capsule,del ayed release TAKE ONE CAPSULE BY MOUTH ONCE A DAY active Not Available Not Available No t Available neomycin-po lymyxin-dex ameth 3.5 mg/mL-10,00 0 unit/mL-0.1 % eye drops 11/02 completed Not Available Not Available Not Available nystatin 100,000 unit/gram topical cream Apply 1 g twice a day by topical route as needed for 20 days. 05/20 completed Not Available Not Available Not Available lisinopril 10 mg tablet take 1 tablet by mouth once daily 05/20 completed Not Available Not Available Not Available diclofenac sodium 75 mg tablet,jane yed release 05/20 completed Not Available Not Available Not Available montelukast 10 mg tablet TAKE ONE TABLET BY MOUTH ONCE A DAY active Not Available Not Available No t Available dexamethaso ne sodium phosphate 4 mg/mL injection solution Inject 1 mL by intramusc ular route. 2024 active Not Available Not Available Not Avai lable cefuroxime axetil 500 mg tablet 05/20 completed Not Available Not Available Not Available methylpredn isolone 4 mg tablets in a dose pack take as directed for acute inflammat ion active Not Available Not Available No t Available albuterol sulfate HFA 90 mcg/actuati on aerosol inhaler INHALE TWO PUFFS BY MOUTH EVERY 4 TO 6 HOURS NEEDED FOR WHEEZING active Not Available Not Available No t Available propranolol 20 mg tablet TAKE ONE TABLET BY MOUTH 3 TIMES A DAY NEEDED active Not Available Not Available No t Available hydrocodone 7.5 mg-acetamin ophen 500 mg tablet 05/20 completed Not Available Not Available Not Available losartan 100 mg tablet TAKE ONE TABLET BY MOUTH ONCE A DAY active Not Available Not Available No t Available fexofenadin e 60 mg-pseudoep hedrine ER 120 mg tablet,ext. release,12 hr Take 1 tablet twice a day by oral route as needed. 05/20 completed Not Available Not Available Not Available amoxicillin 875 mg-potassiu m clavulanate 125 mg tablet Take 1 tablet every 12 hours by oral route with meal(s) for 10 days. active Not Available Not Available No t Available neomycin 3.5 mg/g-polymy pedro B 10,000 unit/g-dexa meth 0.1 % eye oint 11/02 completed Not Available Not Available Not Available escitalopra m 20 mg tablet TAKE ONE TABLET BY MOUTH ONCE A DAY active Not Available Not Available No t Available bupropion HCl XL 150 mg 24 hr tablet, extended release TAKE ONE TABLET BY MOUTH EVERY MORNING active Not Available Not Available No t Available topiramate 50 mg tablet TAKE ONE TABLET BY MOUTH 2 TIMES A DAY DIRECTED active Not Available Not Available No t Available One-A-Day Womens Formula 1 po daily active Not Available Not Available No t Available Vitamin D3 1000 units daily 03/03 completed Not Available Not Available Not Available Veramyst 27.5 mcg/actuati on nasal spray,suspe nsion 05/20 completed Not Available Not Available Not Available levocetiriz ine 5 mg tablet 05/20 completed Not Available Not Available Not Available Soma 250 mg tablet Take 1 tablet twice a day by oral route as needed. 05/20 completed Not Available Not Available Not Available diclofenac 1 % topical gel active Not Available Not Available Not Available Astepro 205.5 mcg (0.15 %) nasal spray 05/20 completed Not Available Not Available Not Available Afluria (PF) 45 mcg(15 mcg x 3)/0.5 mL intramuscul ar syringe 05/20 completed Not Available Not Available Not Available Fluzone Quad (PF) 60 mcg(15 mcgx4)/0.5 mL intramuscul ar syringe inject 0.5 millilite r intramusc ularly 05/20 completed Not Available Not Available Not Available Afluria Qd (36 mos up)(PF)60 mcg (15 mcg x4)/0.5 mL IM syringe inject 0.5 millilite rs intramusc ularly 05/20 completed Not Available Not Available Not Available Vitals Date Recorded Body weight Heart rate Oxygen saturation Oxygen saturation in Arterial blood by Pulse oximetry Body temperature Body mass index (BMI) Body height Systolic blood pressure Diastolic blood pressure Provider Name and Address Organization Details Last Updated DateTime 2 679791. 03 g 104 /min 98 % 98 % 98.8 [degF] 44.6 kg/m2 170.18 cm 133 mm[Hg] 84 mm[Hg] [facility] 2 16:12:52 Date Recorded Heart rate Systolic blood pressure Diastolic blood pressure Provider Name and Address Organization Details Last Updated DateTime 06/10/2022 86 /min 131 mm[Hg] 91 mm[Hg] Sera Kwok MD [address] [facility], [place], [address], [place] [facility] 06/10/2022 15:21:22 Date Recorded Body height Body mass index (BMI) Body weight Heart rate Oxygen saturation Oxygen saturation in Arterial blood by Pulse oximetry Body temperature Systolic blood pressure Diastolic blood pressure Provider Name and Address Organization Details Last Updated DateTime 3 170.18 cm 45.1 kg/m2 389885 g 76 /min 97 % 97 % 97.3 [degF] 131 mm[Hg] 88 mm[Hg] [facility] 3 09:08:38 Date Recorded Body height Body mass index (BMI) Body weight Heart rate Oxygen saturation Oxygen saturation in Arterial blood by Pulse oximetry Body temperature Systolic blood pressure Diastolic blood pressure Provider Name and Address Organization Details Last Updated DateTime 4 170.18 cm 45 kg/m2 147037. 71 g 96 /min 98 % 98 % 98.2 [degF] 123 mm[Hg] 82 mm[Hg] [facility] 4 15:29:54 Date Recorded Body height Body weight Heart rate Oxygen saturation Oxygen saturation in Arterial blood by Pulse oximetry Body temperature Systolic blood pressure Diastolic blood pressure Provider Name and Address Organization Details Last Updated DateTime 4 170.18 cm 829301. 01 g 85 /min 98 % 98 % 98.4 [degF] 121 mm[Hg] 79 mm[Hg] [facility] 4 16:05:49 Date Recorded Body height Body mass index (BMI) Body weight Heart rate Oxygen saturation Oxygen saturation in Arterial blood by Pulse oximetry Body temperature Systolic blood pressure Diastolic blood pressure Provider Name and Address Organization Details Last Updated DateTime 5 170.18 cm 45 kg/m2 385994. 01 g 90 /min 97 % 97 % 97.9 [degF] 141 mm[Hg] 87 mm[Hg] [facility] 5 16:10:18 Social History Question Answer Notes LastModified by Organizat ion Details LastModified Time Tobacco Smoking Status Never Smoker Sera Kwok MD [address] [place] [address], [address], [place], [address], [facility] 03/26/2014 08:10:45 What Is Your Level Of Caffeine Consumption? None Information not available 09/04/2021 What Type Of Diet Are You Following? REGULAR Information not available 09/04/2021 What Is The Highest Grade Or Level Of School You Have Completed Or The Highest Degree You Have Received? [id number] [facility] Information not available 09/04/2021 Who Is Your Employer? [employer] Information not available 11/02/2022 What Was The Date Of Your Most Recent Tobacco Screening? 03/03/2024 Information not available 03/05/2024 How Many Children Do You Have? 1 Information not available 09/04/2021 What Is Your Relationship Status? Information not available 09/04/2021 Sex: Unknown Functional Status Question Answer Note LastModified by Organizat ion Details LastModified Time Do you or have you ever used any other forms of tobacco or nicotine? No Information not available 09/04/2021 What is your level of alcohol consumption? None Information not available 09/04/2021 Are you currently employed? 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 Occasional Information not available 09/04/2021 Mental Status None recorded. Family History Relationship Description Onset Age of this Age Resolved Age Notes LastModified by Organization Details LastModified Time Mother Heart disease Not available 2013 08:10:45 Mother Hypertensive disorder Not available 2013 08:10:45 Mother Rheumatoid arthritis Not available 2021 17:05:04 Mother Atrial fibrillation Not available 17:05:17 Mother Malignant tumor of breast 70 Not available 2021 17:06:51 Father Hypertensive disorder Not available 2013 08:10:45 Father Parkinsonism Not avai lable 09/04/2021 17:05:40 Father Diabetes mellitus Not available 2021 17:06:21 Sister Hypertensive disorder Not available 2021 17:06:03 Notes:has sisters Medical History Condition Response Allergies Y Hypertension Y Gynecological History Statement/Question Response Age at First Child 29 Obstetrics History GPAL:G 1 P 1 0 0 1 Type Value Multiple Births 0 Full Term 1 Induced 0 Spontaneous 0 Premature 0 Living 1 Ectopics 0 Total 1 Immunizations Vaccine Type Date Status Note Provider Nam e and Address Organization Details Recorded Time influenza, unspecified formulation 6 completed Sera Kwok MD [address], [address], [place] [facility] 02/27/2016 16:30:43 Influenza, split virus, quadrivalent, preservative 7 completed Sera Kwok MD [address], [address], [place] [facility] 03/19/2017 23:40:58 Influenza, split virus, quadrivalent, preservative 8 completed Sera Kwok MD [address] [address], [place] [facility] 03/14/2018 10:29:23 Tdap 0 completed Sera Kwok MD [address], [address], [place] [facility] 09/04/2021 16:48:07 influenza, unspecified formulation 9 completed Sera Kwok MD [address], [address], [facility] 06/08/2022 12:25:03 influenza, unspecified formulation 1 completed Hafsa [place] null, [facility] 06/09/2022 15:24:26 influenza, unspecified formulation 2 completed Hafsa [place] null, [facility] 06/09/2022 15:24:32 influenza, unspecified formulation 4 completed Sera Kwok MD [address] [address], [place], [address], [facility] 03/03/2024 16:04:28 Past Encounters Encounter ID Performer Location Encounter Start Date Encounter Closed Date Diagnosis/Indication Diagnosis SNOMED-CT Code Diagnosis ICD10 Code Diagnosis Note [id number] Sera Kwok MD [facility] [address] [place] [id number] 09/04/2021 15:54:08 09/08/2021 08:18:05 Adult health examination 343241085 Z00.00 Screening for malignant neoplasm of colon 467764488 Z12.11 Mixed anxi ety and depressive disorder 644933576 F41.8 Gastroesop hageal reflux disease 739413980 K21.00 Essential hypertension 20825116 I10 148/103 HR 79 History of migraine 1614 73533 Z86.69 Lumbar post-laminectomy syndrome 493635890 M96.1 Body mass index 40+ - severely obese 814114621 Z68.41 [id number] Sera Kwok MD [facility] [address] [place] [id number] 7 11/02/2022 09:01:44 11/05/2022 08:40:28 Adult health examination 526528272 Z00.00 Mixed anxi ety and depressive disorder 139645001 F41.8 Gastroesop hageal reflux disease 222727486 K21.00 Essential hypertension 04868737 I10 History of migraine 1614 36330 Z86.69 Lumbar post-laminectomy syndrome 027347982 M96.1 Body mass index 40+ - severely obese 809650663 Z68.42 Impaired g lucose tolerance 8833346 R73.09 Hepatitis C screening 41 5310467 Z11.59 Hypothyroidism 69881558 E03.9 [id number] Sera Kwok MD [facility] [address] [address] 7 03/03/2024 15:07:20 03/06/2024 11:44:59 Adult health examination 985563290 Z00.00 Mixed anxi ety and depressive disorder 320723156 F41.8 Gastroesop hageal reflux disease 447761359 K21.00 Essential hypertension 09297917 I10 History of migraine 1614 61859 Z86.69 Lumbar post-laminectomy syndrome 092189002 M96.1 Body mass index 40+ - severely obese 170784081 Z68.42 Bereavement 75443216 Z63 .4 [id number] Sera Kwok MD [facility] [address] [place] [address] 7 03/23/2024 15:44:25 03/23/2024 16:53:36 Disorder of respiratory system 35413505 J98.9 Acute maxi llary sinusitis 92737472 J01.00 Respirator y tract congestion and cough 837440528 R05.1 [id number] Sera Kwok MD [facility] [address] [id number] 05/25/2024 15:45:22 05/29/2024 08:42:04 Chest wall pain 822817792 R07.89 this has been persistent and worsening since February. Glucose le miriam outside reference range 038801363 R73.09 Cervical radiculopathy 16812880 M54.12 Atypical chest pain 1025 43589 R07.89 Anterior p leuritic pain 0290563918 104 R07.1 Essential hypertension 81628081 I10 Health Concerns Section Related Observation LastModified by Organization Detai ls LastModified Time None Recorded Concern Status LastModified by Organization Details LastModified Time None Recorded Advance Directives Directive None Recorded Payers Encounter Date Sequence Insurance Name Policy Number Policy Brennan Covered Member ID Brennan Member ID Guarantor Name 09/04/2021 1 [employer] - OPEN ACCESS - NATIONAL (POS) [id number] Anne Garcia [id number] Anne Garcia 11/02/2022 1 [employer] (POS) [id number] Anne Garcia [id number] Anne Garcia 03/03/2024 1 [employer] (POS) [id number] Anne Garcia [id number] Anne Garcia 03/23/2024 1 [employer] (POS) [id number] Anne Garcia [id number] Anne Garcia 05/25/2024 1 [employer] (POS) [id number] Anne Garcia [id number] Anne Garcia Notes Date Note Type Note Provider Name and Address Organization Details Recorded Time 11/02/2022 text/html feels like she h as a sugar problem and uses her 's glucometer. Sometimes has very low sugars. She gets this sensation of clamminess and palpitations every other day as well. Sera Kwok MD [address] [facility], [facility], [place], [address], [facility] 11/04/2022 11:40:46 03/03/2024 text/html recently lost he r mother unexpectedly so it has been difficult for her. Sera Kwok MD [address] [facility], [facility], [place], [address], [facility] 03/05/2024 20:02:11 03/23/2024 text/html she has been ill since Wednesday and is getting worse with chills, coughing productively with a lot of drainage. Her face and left ear hurt. Sera Kwok MD [address] [facility], [address], [place], [address], [facility] 03/23/2024 16:35:45 05/25/2024 text/html when she is sedentary she can feel a dull chest pain but when she coughs or sneezes she has very sharp and stabbing chest pain. she is unable to lie on the left side because of the chest pain. If she tries to push up from a chair she has pain radiating up the left arm and into the upper back and neck.Any deep breathing hurts her as well. This started in February and has not resolved. She did have a lot of coughing initially and it has progressed since then with this pain. She is waking up with chest pain that is sore and heavy every morning. She denies feeling short of breath. This also started after a respiratory illness and she has been reading and is worried that she has pericarditis. She also had a dizzy episode while sitting on Wednesday night and about fell out of her chair as the room was spinning like vertigo. Everything was spinning and yesterday she had major vertigo so missed work yesterday. She did go to work this morning and has to avoid looking down.She is treated for hypertension with fair control and averages 140/80There is a strong family history of heart disease. Also her mother has RA so there is concern for rheumatologic disease with this chest wall pain as well.She does note the left hand feels weaker. She is right handed. Sera Kwok MD [address] [facility], [address], [place], [address], [facility] 2024 21:26:19 OBGyn Episode No OBEpisode recorded.
--- NOTE | 2024-09-01 16:38 | XR_ITS ---
PROCEDURE INFORMATION: Exam: XR Left Knee Exam date and time: 09/01/2024 4:49 PM Age: 49 years old Clinical indication: Pain; Knee; Left; Additional info: Knee pain TECHNIQUE: Imaging protocol: Radiologic exam of the left knee. Views: 3 views. COMPARISON: CR XR FOOT WT BEARING LT 3V 12/23/2022 4:15 PM FINDINGS: Bones/joints: The patella appears slightly subluxed laterally. Some fragmentation to the superior surface of the patella on the sunrise view, could be related to chronic tendinopathy/degenerative changes. Small suprapatellar effusion. No acutely displaced fractures. No joint dislocation. No aggressive osseous lesions. Soft tissues: There is no significant soft tissue swelling. IMPRESSION: 1. The patella appears slightly subluxed laterally. Questions patellar instability. 2. Some fragmentation to the superior surface of the patella on the sunrise view, could be related to chronic tendinopathy/degenerative changes. 3. Small suprapatellar effusion.
== END 2024-09-01 23:59 | disposition home or self-care (01) ==
LOC: RAD 16:29
PROVIDERS: PCP Family Medicine; Visit Provider Orthopaedic Surgery
DX: M25.462 Effusion, left knee (principal); S83.012A Lateral subluxation of left patella, initial encounter; X58.XXXA Exposure to other specified factors, initial encounter
CPT/HCPCS: 73562

== ENCOUNTER 2024-10-18 15:51 | Outpatient (CLI) | payer OTHER, SELFPAY ==
--- OUTSIDE RECORDS SUMMARY | 2024-10-18 15:53 | XMS_ITS | Data Portability ---
Author Organization [facility] Address [address] [place] [address] Care Team Providers Care Client Support Coordinator Name Role Phone CONNIE BULL OTHER DIETER FLEMING Referring Provider [phone] XIOMY GONZALEZ Referring Provider [phone] Assessment Encounter Date Assessment Date Assessment LastModified by Organization Details LastModified Time 09/04/2021 09/04/2021 Mrs. Garcia presents for a check up. She has been followed for years at the [facility] clinic. 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 She had a discectomy [...] malignancies. We encourage healthy diet and exercise. Not available 09/07/2021 14:41:28 11/02/2022 11/02/2022 Mrs. Garcia presents for a wellness check up. She is now working at [employer] in [employer] and enjoys her job. 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 She had a discectomy [...] up of the thyroid within 6 months. [email or web address] Not available 11/03/2022 22:40:33 03/03/2024 03/03/2024 Mrs. Garcia presents for a wellness check up. She is now working at [employer] in [employer] and enjoys her job. 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 She had a discectomy [...] of corticosteroids for the possible cervical radiculopathy. [email or web address] Not available 2024 21:26:05 Plan of Treatment Reminders Order Date Submit Date Provider Last Modified By Organization Details Last Modified Time Details Appointments None recorded. Lab C-reactive protein, quantitativ e, serum or plasma 2024 025 [employer] [facility], [address], [place], [address], 13:17:47 erythrocyte sedimentati on rate by westergren method 2024 025 [employer] [facility], [address], [place], [address], 13:17:46 HbA1c (hemoglobin A1c), blood 2024 025 [employer] [facility], [address], [place], [address], 13:17:46 rapid SARS CoV 2 Ag, QL IA, respiratory specimen 2023 024 [email or web address] [email or web address] In-Office Order, Internal Use Only DO Not Attach Compendium DO Not Attach Compendium, Do Not Delete/merge, [id number] 4 16:08:40 HbA1c (hemoglobin A1c), blood 2022 023 [employer] [facility], [address], [place], [address], 3 11:47:03 hepatitis C virus Ab, serum 2022 023 [employer] [facility], [address], [place], [address], 3 11:47:04 Referral cardiologis t referral 2024 025 NEL Bates MD, [address], [place], [address], 5 16:00:20 Procedures colonoscopy screening (PROC) - In October 212021 022 [email or web address] n5 Blayne Grove Jr, [address], [address], [place], [address], 2 16:13:19 Surgeries None recorded. Imaging XR, chest, 2 view 2024 025 [facility] (X-Ray), [address], [place], [place], [address], 5 16:39:19 XR, cervical spine, 2 or 3 view 2024 025 [facility] (X-Ray), [facility], [place], [address], 5 16:40:04 Medication Orders methylpredn isolone 4 mg tablets in a dose pack 2024 025 [facility], [address] [place] [address], [place], [id number], 5 17:15:20 dexamethaso ne sodium phosphate 4 mg/mL injection solution 2024 025 [facility], [address] [place] [address], [place], [id number], 5 17:14:39 dexamethaso ne sodium phosphate 4 mg/mL injection solution 2023 024 Not available 4 16:36:12 ceftriaxone 1 gram solution for injection [address] [facility], [address] [place] [address], [place], [id number], 5 17:02:26 amoxicillin 875 mg-potassiu m clavulanate 125 mg tablet 2023 024 [facility], [address] [place] [address] [place], [id number], 4 16:34:09 promethazin e-DM 6.25 mg-15 mg/5 mL oral syrup 2023 024 [facility], [address] [place] [address] [place], [id number], 4 16:34:13 bupropion HCl XL 150 mg 24 hr tablet, extended release 2023 024 [facility], [address] [place] [address] [place], [id number], 4 16:11:51 levothyroxi ne 50 mcg tablet [address] [facility] [facility], [address] [place] [address] [place], [id number], 16:00:36 Patient TargetsNo targets recorded. Patient Instructions Encounter Date Encounter Id Patient Instructions Last Modified By Organization Details Last Modified Time 09/04/2021 [id number] learning about healthy weight Not available 09/07/2021 14:41:46 11/02/2022 [id number] learning about healthy weight Not available 11/02/2022 09:55:00 03/03/2024 [id number] learning about healthy weight Not available 03/03/2024 16:09:54 Reason for Referral [employer]ist Referral for At ypical chest pain Referring Physician: Sera Kwok, Family Medicine, Encounter Date: 05/25/2024 Results Created Date Observation Date Name Description Value Unit Range Abnormal Flag Note LastModifiedBy Organization Detail LastModifiedTime 11/03/1911/03/2022 LIPID PANEL , STAND CARROL cholesterol, total 194 mg/dL <200 normal Not Available [facility] [place] [facility] [address] [place], [address], 11/03/2022 11:37:44 11/03/1911/03/2022 LIPID PANEL , STAND CARROL HDL cholesterol 50 mg/dL > or = 50 normal Not Available [facility] [place] [facility] [address] [place], [address], 11/03/2022 11:37:44 11/03/1911/03/2022 LIPID PANEL , STAND CARROL triglyceride s 186 mg/dL <150 high Not Available [facility] [place] [facility] [address], [place], [address], 11/03/2022 11:37:44 11/03/1911/03/2022 LIPID PANEL , STAND CARROL LDL-choleste rol 114 mg/dL _(gabe c) high Refer ence range : <100 Ana able range <100 mg/dL for prima ry preve ntion ; <70 mg/dL for patie nts with CHD or diabe tic patie nts with > or = 2 CHD risk facto rs. LDL-C is now calcu lated using the Ann n-Hop kins calcu frederick n, which is a valid ated novel metho d sofyi ding zahra r accur acy than the Fried hugo equat ion in the estim ation of LDL-C . Ann sellers SS et al. VALERY. 2013; 310(1 9): 2061- 2068 (http ://ed ucati on.Qu estDi T L [employer]. com/f aq/FA Q164) Not Available [facility] [place] [facility] [address], [place], [address], 11/03/2022 11:37:44 11/03/19 23 11/03/2022 LIPID PANEL , STAND CARROL chol/HDLC ratio 3.9 (calc ) <5.0 normal Not Available [facility] [place] [facility] [address], [place], [address], 11/03/2022 11:37:44 11/03/19 23 11/03/2022 LIPID PANEL , STAND CARROL non HDL cholesterol 144 mg/dL _(gabe c) <130 high For patie nts with diabe julissa plus 1 major ASCVD risk facto r, treat ing to a non-H DL-C goal of <100 mg/dL (LDL- C of <70 mg/dL ) is consi dered a thera peuti c optio n. Not Available [facility] [place] [facility] [address], [place], [address], 11/03/2022 11:37:44 11/03/1911/03/2022 COMPR EHENS SARIKA METAB OLIC PANEL glucose 93 mg/dL 65-99 normal Fasti ng refer ence inter caroline Not Available [facility] [place] [facility] [address], [place], [address], 11/03/2022 11:37:45 11/03/19 23 11/03/2022 COMPR EHENS SARIKA METAB OLIC PANEL urea nitrogen (BUN) 13 mg/dL 7-25 normal Not Available [facility] [place] [facility] [address] [place], [address], 11/03/2022 11:37:45 11/03/19 23 11/03/2022 COMPR EHENS SARIKA METAB OLIC PANEL creatinine 0.75 mg/dL 0.50-0 .99 normal Not Available [facility] [address] [place], [address], 11/03/2022 11:37:45 11/03/19 23 11/03/2022 COMPR EHENS SARIKA METAB OLIC PANEL eGFR 99 mL/mi n/1.7 3m2 > or = 60 normal The eGFR is based on the CKD-E PI 2020 equat ion. To calcu late the new eGFR from a previ ous Creat inine or Cysta tin C resul t, go to https ://gabriela goetz.sylvester carter.o мария/yordy padilla s/ kdoqi /gfr% 5Fcal culat or Not Available [facility] [address] [place], [address], 11/03/2022 11:37:45 11/03/19 23 11/03/2022 COMPR EHENS SARIKA METAB OLIC PANEL BUN/creatini ne ratio NOT APPLIC ABLE (calc ) 6-22 Not Available [facility] [address] [place], [address], 11/03/2022 11:37:45 11/03/19 23 11/03/2022 COMPR EHENS SARIKA METAB OLIC PANEL sodium 139 mmol/ L 135-14 6 normal Not Available [facility] [address] [place], [address], 11/03/2022 11:37:45 11/03/19 23 11/03/2022 COMPR EHENS SARIKA METAB OLIC PANEL potassium 4.1 mmol/ L 3.5-5. 3 normal Not Available [facility] [address] [facility] [email or web address], [address], 11/03/2022 11:37:45 11/03/19 23 11/03/2022 COMPR EHENS SARIKA METAB OLIC PANEL chloride 105 mmol/ L 98-110 normal Not Available [facility] [address] [place], [address], 11/03/2022 11:37:45 11/03/19 23 11/03/2022 COMPR EHENS SARIKA METAB OLIC PANEL carbon dioxide 26 mmol/ L 20-32 normal Not Available [facility] [address] [place], [address], 11/03/2022 11:37:45 11/03/19 23 11/03/2022 COMPR EHENS SARIKA METAB OLIC PANEL calcium 9.4 mg/dL 8.6-10 .2 normal Not Available [facility] [address] [place] [address], [address], 11/03/2022 11:37:45 11/03/19 23 11/03/2022 COMPR EHENS SARIKA METAB OLIC PANEL protein, total 7.3 g/dL 6.1-8. 1 normal Not Available [facility] [address] [place] [address], [address], 11/03/2022 11:37:45 11/03/19 23 11/03/2022 COMPR EHENS SARIKA METAB OLIC PANEL albumin 4.1 g/dL 3.6-5. 1 normal Not Available [facility] [address] [place] [address], [address], 11/03/2022 11:37:45 11/03/19 23 11/03/2022 COMPR EHENS SARIKA METAB OLIC PANEL globulin 3.2 g/dL_ (calc ) 1.9-3. 7 normal Not Available [facility] [address] [place], [address], 11/03/2022 11:37:45 11/03/19 23 11/03/2022 COMPR EHENS SARIKA METAB OLIC PANEL albumin/glob ulin ratio 1.3 (calc ) 1.0-2. 5 normal Not Available [facility] [employer] [facility] [address] [place], [address], 11/03/2022 11:37:45 11/03/19 23 11/03/2022 COMPR EHENS SARIKA METAB OLIC PANEL bilirubin, total 0.7 mg/dL 0.2-1. 2 normal Not Available [facility] [address] [place], [address], 11/03/2022 11:37:45 11/03/19 23 11/03/2022 COMPR EHENS SARIKA METAB OLIC PANEL alkaline phosphatase 92 U/L 31-125 normal Not Available [employer] [facility] [address] [place], [address], 11/03/2022 11:37:45 11/03/19 23 11/03/2022 COMPR EHENS SARIKA METAB OLIC PANEL AST 46 U/L 10-35 high Not Available [facility] [employer] [facility] [address] [place], [address], 11/03/2022 11:37:45 11/03/19 23 11/03/2022 COMPR EHENS SARIKA METAB OLIC PANEL ALT 47 U/L 6-29 high Not Available [facility] [address] [place], [address], 11/03/2022 11:37:45 11/03/19 23 11/03/2022 TSH TSH 6.04 mIU/L high Refer ence Range > or = 20 Years 0.40- 4.50 Pregn jack Range s First trime ster 0.26- 2.66 Secon d trime ster 0.55- 2.73 Third trime ster 0.43- 2.91 Not Available [facility] [place] [facility] [address] [facility] [[email or web address], [address], 11/03/2022 11:37:45 11/03/19 23 11/03/2022 CBC (INCL UDES DIFF/ PLT) white blood cell count 6.4 thous and/u L 3.8-10 .8 normal Not Available [facility] [address] [facility] [[email or web address], [address], 11/03/2022 11:37:46 11/03/1911/03/2022 CBC (INCL UDES DIFF/ PLT) red blood cell count 4.89 ania on/uL 3.80-5 .10 normal Not Available [facility] [address] [facility] [[email or web address], [address], 11/03/2022 11:37:46 11/03/19 23 11/03/2022 CBC (INCL UDES DIFF/ PLT) hemoglobin 14.9 g/dL 11.7-1 5.5 normal Not Available [facility] [place] [facility] [address] [facility] [[email or web address], [address], 11/03/2022 11:37:46 11/03/1911/03/2022 CBC (INCL UDES DIFF/ PLT) hematocrit 45.2 % 35.0-4 5.0 high Not Available [facility] [address] [facility] [[email or web address], [address], 11/03/2022 11:37:46 11/03/1911/03/2022 CBC (INCL UDES DIFF/ PLT) MCV 92.4 fL 80.0-1 00.0 normal Not Available [facility] [address] [facility] [[email or web address], [address], 11/03/2022 11:37:46 11/03/19 23 11/03/2022 CBC (INCL UDES DIFF/ PLT) MCH 30.5 pg 27.0-3 3.0 normal Not Available [facility] [place] [facility] [address] [facility] [[email or web address], [address], 11/03/2022 11:37:46 11/03/19 23 11/03/2022 CBC (INCL UDES DIFF/ PLT) MCHC 33.0 g/dL 32.0-3 6.0 normal Not Available [facility] [place] [facility] [address] [facility] [[email or web address], [address], 11/03/2022 11:37:46 11/03/19 23 11/03/2022 CBC (INCL UDES DIFF/ PLT) RDW 12.1 % 11.0-1 5.0 normal Not Available [facility] [place] [facility] [address] [facility] [[email or web address], [address], 11/03/2022 11:37:46 11/03/19 23 11/03/2022 CBC (INCL UDES DIFF/ PLT) platelet count 220 thous and/u L 140-40 0 normal Not Available [facility] [place] [facility] [address] [facility] [[email or web address], [address], 11/03/2022 11:37:46 11/03/19 23 11/03/2022 CBC (INCL UDES DIFF/ PLT) MPV 8.4 fL 7.5-12 .5 normal Not Available [facility] [place] [facility] [address] [facility] [[email or web address], [address], 11/03/2022 11:37:46 11/03/19 23 11/03/2022 CBC (INCL UDES DIFF/ PLT) absolute neutrophils 3258 cells /uL 1500-7 800 normal Not Available [facility] [place] [facility] [address] [facility] [[email or web address], [address], 11/03/2022 11:37:46 11/03/19 23 11/03/2022 CBC (INCL UDES DIFF/ PLT) absolute lymphocytes 2643 cells /uL 850-39 00 normal Not Available [facility] [place] [facility] [address], [place], [address], 11/03/2022 11:37:46 11/03/19 23 11/03/2022 CBC (INCL UDES DIFF/ PLT) absolute monocytes 378 cells /uL 200-95 0 normal Not Available [facility] [place] [facility] [address], [place], [address], 11/03/2022 11:37:46 11/03/19 23 11/03/2022 CBC (INCL UDES DIFF/ PLT) absolute eosinophils 102 cells /uL 15-500 normal Not Available [facility] [place] [facility] [address], [place], [address], 11/03/2022 11:37:46 11/03/19 23 11/03/2022 CBC (INCL UDES DIFF/ PLT) absolute basophils 19 cells /uL 0-200 normal Not Available [facility] [place] [facility] [address], [place], [address], 11/03/2022 11:37:46 11/03/19 23 11/03/2022 CBC (INCL UDES DIFF/ PLT) neutrophils 50.9 % normal Not Available [facility] [place] [facility] [address], [place], [address], 11/03/2022 11:37:46 11/03/19 23 11/03/2022 CBC (INCL UDES DIFF/ PLT) lymphocytes 41.3 % normal Not Available [facility] [place] [facility] [address], [place], [address], 11/03/2022 11:37:46 11/03/19 23 11/03/2022 CBC (INCL UDES DIFF/ PLT) monocytes 5.9 % normal Not Available [facility] [place] [facility] [address], [place], [address], 11/03/2022 11:37:46 11/03/19 23 11/03/2022 CBC (INCL UDES DIFF/ PLT) eosinophils 1.6 % normal Not Available [facility] [place] [facility] [address] [place], [address], 11/03/2022 11:37:46 11/03/19 23 11/03/2022 CBC (INCL UDES DIFF/ PLT) basophils 0.3 % normal Not Available [facility] [place] [facility] [address] [place], [address], 11/03/2022 11:37:46 11/03/19 23 11/03/2022 HEMOG LOBIN A1C hemoglobin A1C 5.5 %_of_ total _HGB <5.7 normal For the purpo se of screevonne nettles for the prese nce of diabe [...] julissa(A DA). Not Available [facility] [place] [facility] [address] [place], [address], 11/03/2022 11:47:03 11/03/19 23 11/03/2022 HEPAT ITIS [...] a test for HCV RNA (test code 33940 ) is sugge sted. For addit ional infor alpesh sellers pleas e refer to http: //[facility] dave sellers.que stdia gnost ics.c om/fa q/FAQ 22v1 (This link is being provi ded for infor alpesh nal/ educa kyaw l purpo ses only. ) Not Available [facility] [place] [facility] [address] [place], [address], 11/03/2022 11:47:04 02/24/20 24 02/25/2024 LIPID PANEL , STAND CARROL cholesterol, total 170 mg/dL <200 normal Not Available [facility] [place] [facility] [address] [place], [address], 02/25/2024 08:58:58 02/24/20 24 02/25/2024 LIPID PANEL , STAND CARROL HDL cholesterol 40 mg/dL > or = 50 low Not Available [facility] [place] [facility] [address] [place], [address], 02/25/2024 08:58:58 02/24/20 24 02/25/2024 LIPID PANEL , STAND CARROL triglyceride s 197 mg/dL <150 high Not Available [facility] [place] [facility] [address] [place], [address], 02/25/2024 08:58:58 02/24/2002/25/2024 LIPID PANEL , STAND CARROL LDL-choleste rol 98 mg/dL _(gabe c) normal Refer ence range : <100 Ana able range <100 mg/dL for prima ry preve ntion ; <70 mg/dL for patie nts with CHD or diabe tic patie nts with > or = 2 CHD risk facto rs. LDL-C is now calcu lated using the Ann n-Hop kins calcu frederick n, which is a valid ated novel metho d provi ding zahra r accur acy than the Fried hugo equat ion in the estim ation of LDL-C . Ann sellers SS et al. VALERY. 2013; 310(1 9): 2061- 2068 (http ://ed ucati on.Qu estDi [employer]. com/f aq/FA Q164) Not Available [facility] [place] [facility] [address] [facility] [[email or web address], [place], [address], 02/25/2024 08:58:58 02/24/20 24 02/25/2024 LIPID PANEL , STAND CARROL chol/HDLC ratio 4.3 (calc ) <5.0 normal Not Available [facility] [place] [facility] [address] [facility] [[email or web address], [place], [address], 02/25/2024 08:58:58 02/24/20 24 02/25/2024 LIPID PANEL , STAND CARROL non HDL cholesterol 130 mg/dL _(gabe c) <130 high For patie nts with diabe julissa plus 1 major ASCVD risk facto r, treat ing to a non-H DL-C goal of <100 mg/dL (LDL- C of <70 mg/dL ) is consi dered a thera peuti c optio n. Not Available [facility] [place] [facility] [address] [facility] [[email or web address], [place], [address], 02/25/2024 08:58:58 02/24/2002/25/2024 COMPR EHENS SARIKA METAB OLIC PANEL glucose 100 mg/dL 65-99 high Fasti ng refer ence inter caroline For someo ne witho ut known diabe julissa, a gluco se value betwe en 100 and 125 mg/dL is consi stent with predi abete s and shoul d be confi rmed with a follo w-up test. Not Available [facility] [place] [facility] [address] [facility] [[email or web address], [place], [address], 02/25/2024 08:58:59 02/24/20 24 02/25/2024 COMPR EHENS SARIKA METAB OLIC PANEL urea nitrogen (BUN) 9 mg/dL 7-25 normal Not Available [facility] [place] [facility] [address] [facility] [[email or web address], [address], 02/25/2024 08:58:59 02/24/20 24 02/25/2024 COMPR EHENS SARIKA METAB OLIC PANEL creatinine 0.73 mg/dL 0.50-0 .99 normal Not Available [facility] [address] [facility] [[email or web address], [address], 02/25/2024 08:58:59 02/24/20 24 02/25/2024 COMPR EHENS SARIKA METAB OLIC PANEL eGFR 101 mL/mi n/1.7 3m2 > or = 60 normal Not Available [facility] [address] [place], [address], 02/25/2024 08:58:59 02/24/20 24 02/25/2024 COMPR EHENS SARIKA METAB OLIC PANEL BUN/creatini ne ratio SEE NOTE: (calc ) 6-22 Not Repor esperanza: BUN and Creat inine are withi n refer ence range . Not Available [facility] [address] [facility] [[email or web address], [address], 02/25/2024 08:58:59 02/24/20 24 02/25/2024 COMPR EHENS SARIKA METAB OLIC PANEL sodium 140 mmol/ L 135-14 6 normal Not Available [facility] [address] [place], [address], 02/25/2024 08:58:59 02/24/20 24 02/25/2024 COMPR EHENS SARIKA METAB OLIC PANEL potassium 4.2 mmol/ L 3.5-5. 3 normal Not Available [facility] [address] [place], [address], 02/25/2024 08:58:59 02/24/2002/25/2024 COMPR EHENS SARIKA METAB OLIC PANEL chloride 108 mmol/ L 98-110 normal Not Available [facility] [address] [facility] [[email or web address], [address], 02/25/2024 08:58:59 02/24/2002/25/2024 COMPR EHENS SARIKA METAB OLIC PANEL carbon dioxide 24 mmol/ L 20-32 normal Not Available [facility] [address] [facility] [[email or web address] [place], [address], 02/25/2024 08:58:59 02/24/2002/25/2024 COMPR EHENS SARIKA METAB OLIC PANEL calcium 9.0 mg/dL 8.6-10 .2 normal Not Available [facility] [address] [place] [address], [address], 02/25/2024 08:58:59 02/24/2002/25/2024 COMPR EHENS SARIKA METAB OLIC PANEL protein, total 6.6 g/dL 6.1-8. 1 normal Not Available [facility] [address] [facility] [[email or web address], [address], 02/25/2024 08:58:59 02/24/2002/25/2024 COMPR EHENS SARIKA METAB OLIC PANEL albumin 3.7 g/dL 3.6-5. 1 normal Not Available [facility] [address] [facility] [[email or web address], [address], 02/25/2024 08:58:59 02/24/2002/25/2024 COMPR EHENS SARIKA METAB OLIC PANEL globulin 2.9 g/dL_ (calc ) 1.9-3. 7 normal Not Available [facility] [address] [facility] [[email or web address], [address], 02/25/2024 08:58:59 02/24/2002/25/2024 COMPR EHENS SARIKA METAB OLIC PANEL albumin/glob ulin ratio 1.3 (calc ) 1.0-2. 5 normal Not Available [facility] [address] [facility] [[email or web address], [address], 02/25/2024 08:58:59 02/24/20 24 02/25/2024 COMPR EHENS SARIKA METAB OLIC PANEL bilirubin, total 0.6 mg/dL 0.2-1. 2 normal Not Available [facility] [address] [place], [address], 02/25/2024 08:58:59 02/24/20 24 02/25/2024 COMPR EHENS SARIKA METAB OLIC PANEL alkaline phosphatase 84 U/L 31-125 normal Not Available [facility] [address] [place], [address], 02/25/2024 08:58:59 02/24/20 24 02/25/2024 COMPR EHENS SARIKA METAB OLIC PANEL AST 38 U/L 10-35 high Not Available [facility] [employer] [address] [place], [address], 02/25/2024 08:58:59 02/24/20 24 02/25/2024 COMPR EHENS SARIKA METAB OLIC PANEL ALT 32 U/L 6-29 high Not Available [facility] [address] [facility] [[email or web address], [address], 02/25/2024 08:58:59 02/24/20 24 02/25/2024 TSH TSH 1.75 mIU/L normal Refer ence Range > or = 20 Years 0.40- 4.50 Pregn jack Range s First trime ster 0.26- 2.66 Secon d trime ster 0.55- 2.73 Third trime ster 0.43- 2.91 Not Available [facility] [address] [facility] [[email or web address], [address], 02/25/2024 08:58:59 02/24/20 24 02/25/2024 CBC (INCL UDES DIFF/ PLT) white blood cell count 5.0 thous and/u L 3.8-10 .8 normal Not Available [facility] [address] [facility] [[email or web address], [address], 02/25/2024 08:59:00 02/24/2002/25/2024 CBC (INCL UDES DIFF/ PLT) red blood cell count 4.79 ania on/uL 3.80-5 .10 normal Not Available [facility] [address] [facility] [[email or web address], [address], 02/25/2024 08:59:00 02/24/20 24 02/25/2024 CBC (INCL UDES DIFF/ PLT) hemoglobin 14.4 g/dL 11.7-1 5.5 normal Not Available [facility] [place] [facility] [address] [facility] [email or web address], [address], 02/25/2024 08:59:00 02/24/2002/25/2024 CBC (INCL UDES DIFF/ PLT) hematocrit 44.6 % 35.0-4 5.0 normal Not Available [facility] [address] [facility] [[email or web address], [address], 02/25/2024 08:59:00 02/24/20 24 02/25/2024 CBC (INCL UDES DIFF/ PLT) MCV 93.1 fL 80.0-1 00.0 normal Not Available [facility] [place] [facility] [address] [facility] [email or web address], [address], 02/25/2024 08:59:00 02/24/20 24 02/25/2024 CBC (INCL UDES DIFF/ PLT) MCH 30.1 pg 27.0-3 3.0 normal Not Available [facility] [place] [facility] [address] [facility] [email or web address], [address], 02/25/2024 08:59:00 02/24/20 24 02/25/2024 CBC (INCL UDES DIFF/ PLT) MCHC 32.3 g/dL 32.0-3 6.0 normal For adult s, a sligh t decre ase in the calcu lated MCHC value (in the range of 30 to 32 g/dL) is most likel y not clini leodan signi iglesia t; cathi er, it shoul d be inter prete d with cauti on in [facility] n with other red cell jacky eters and the patie nt's clini gabe condi tion. Not Available [facility] [place] [facility] [address] [facility], [place], [address], 02/25/2024 08:59:00 02/24/20 24 02/25/2024 CBC (INCL UDES DIFF/ PLT) RDW 12.0 % 11.0-1 5.0 normal Not Available [facility] [place] [facility] [address] [facility], [place], [address], 02/25/2024 08:59:00 02/24/20 24 02/25/2024 CBC (INCL UDES DIFF/ PLT) platelet count 251 thous and/u L 140-40 0 normal Not Available [facility] [place] [facility] [address] [facility] [email or web address], [address], 02/25/2024 08:59:00 02/24/20 24 02/25/2024 CBC (INCL UDES DIFF/ PLT) MPV 9.3 fL 7.5-12 .5 normal Not Available [facility] [place] [facility] [address] [facility] [[email or web address] [place], [place], [address], 02/25/2024 08:59:00 02/24/20 24 02/25/2024 CBC (INCL UDES DIFF/ PLT) absolute neutrophils 2995 cells /uL 1500-7 800 normal Not Available [facility] [place] [facility] [address] [facility] [[email or web address], [place], [address], 02/25/2024 08:59:00 02/24/20 24 02/25/2024 CBC (INCL UDES DIFF/ PLT) absolute lymphocytes 1575 cells /uL 850-39 00 normal Not Available [facility] [place] [facility] [address] [facility] [[email or web address], [address], 02/25/2024 08:59:00 02/24/20 24 02/25/2024 CBC (INCL UDES DIFF/ PLT) absolute monocytes 350 cells /uL 200-95 0 normal Not Available [facility] [place] [facility] [address] [email or web address], [place], [address], 02/25/2024 08:59:00 02/24/20 24 02/25/2024 CBC (INCL UDES DIFF/ PLT) absolute eosinophils 60 cells /uL 15-500 normal Not Available [facility] [place] [facility] [address] [facility] [[email or web address], [address], 02/25/2024 08:59:00 02/24/20 24 02/25/2024 CBC (INCL UDES DIFF/ PLT) absolute basophils 20 cells /uL 0-200 normal Not Available [facility] [place] [facility] [address] [facility] [[email or web address], [address], 02/25/2024 08:59:00 02/24/20 24 02/25/2024 CBC (INCL UDES DIFF/ PLT) neutrophils 59.9 % normal Not Available [facility] [place] [facility] [address] [facility] [[email or web address], [address], 02/25/2024 08:59:00 02/24/20 24 02/25/2024 CBC (INCL UDES DIFF/ PLT) lymphocytes 31.5 % normal Not Available [facility] [place] [facility] [address] [facility] [[email or web address], [address], 02/25/2024 08:59:00 02/24/20 24 02/25/2024 CBC (INCL UDES DIFF/ PLT) monocytes 7.0 % normal Not Available [facility] [place] [facility] [address] [facility], [place], [address], 02/25/2024 08:59:00 02/24/20 24 02/25/2024 CBC (INCL UDES DIFF/ PLT) eosinophils 1.2 % normal Not Available [facility] [place] [facility] [address] [place], [address], 02/25/2024 08:59:00 02/24/20 24 02/25/2024 CBC (INCL UDES DIFF/ PLT) basophils 0.4 % normal Not Available [facility] [place] [facility] [address] [place], [address], 02/25/2024 08:59:00 03/23/20 24 03/23/2024 rapid SARS CoV 2 Ag, QL IA, respi rator y speci men rapid SARS CoV 2 Ag, QL IA, respiratory specimen negati ve Not Available In-Office Order Internal Use Only DO Not Attach Compendium DO Not Attach Compendium, Do Not Delete/merge, [id number] 03/23/2024 16:08:18 05/25/19 25 05/26/2024 HEMOG LOBIN [...] julissa(A DA). Not Available [facility] [place] [facility] [address] [email or web address], [place], [address], 05/26/2024 13:17:46 05/25/19 25 05/26/2024 SED RATE BY MODIF IED WESTE RGREN sed rate by modified westergren 11 mm/h < or = 20 normal Not Available [facility] [place] [facility] [address] [facility] [[email or web address], [place], [address], 05/26/2024 13:17:46 05/25/19 25 05/26/2024 C-SENTHIL CTIVE PROTE IN C-reactive protein 4.7 mg/L <8.0 normal Not Available [facility] [place] [facility] [address] [email or web address] [place], [address], 05/26/2024 13:17:47 08/06/19 22 08/04/2021 MAMMO , scree tho, digit al, bilat eral No observ ation record ed. [id number] [facility] [address], [place], [address], 09/04/2021 17:01:48 10/14/19 23 10/08/2022 MAMMO , scree tho, digit al, bilat eral No observ ation record ed. [address], [place], [address], 11/02/2022 09:39:51 12/24/19 23 12/23/2022 XR, foot, 3 or more view No observ ation record ed. [address] [facility] [address], [place], [address], 03/03/2024 15:41:22 12/24/19 23 12/23/2022 XR, foot, 3 or more view No observ ation record ed. [address], [place], [address], 03/03/2024 15:41:22 10/21/19 24 10/18/2023 MAMMO , scree tho, digit al, bilat eral No observ ation record ed. [address], [place], [address], 03/03/2024 15:41:22 05/29/19 25 05/29/2024 XR, chest , 2 view No observ ation record ed. [address], [place], [address], 05/31/2024 07:42:04 05/29/19 25 05/29/2024 XR, cervi gabe spine , 2 or 3 view No observ ation record ed. [address], [place], [place], [address], 05/31/2024 07:55:14 06/14/19 25 06/14/2024 nucle ar stres s test No observ ation record ed. [address], [place], [address], 07/02/2024 15:47:18 06/14/19 25 06/14/2024 cardi ac stres s test No observ ation record ed. [address], [place], [address], 07/02/2024 15:48:39 06/24/19 25 06/14/2024 US, echoc ardio gram No observ ation record ed. [id number], [place], [address], 07/02/2024 15:49:18 09/02/19 25 09/01/2024 XR, knee No observ ation record ed. [facility] [address], [place], [place], [address], 09/11/2024 20:56:50 Result Notes None recorded. Problems Name Problem SNOMED Code Status Onset Date Resolution Date Notes Provider Name and Address Organization Details Recorded Time Benign essential hypertension 5216437 Consuelo Kwok MD [address] [address], [facility] 6 16:01:40 Allergic rhinitis 28224099 Consuelo Kwok MD [address] [address], [facility] 5 15:14:58 Backache 241706056 Conuselo Kwok MD [address] [address], [facility] 6 15:13:28 Mammography abnormal 613111497 Active Sera Kwok MD [address] [address], [facility] 6 15:35:41 Cough 40209897 Consuelo Kwok MD [address] [address], [facility] 3 07:49:30 Disorder of shoulder 963691625 Consuelo Kwok MD [address] [address], [facility] 5 15:21:02 Wheezing 75626961 Consuelo Kwok MD [address] [address], [facility] 5 07:30:44 Depressive disorder 03704362 Consuelo Kwok MD [address], [address] [place] [address], [facility] 5 08:06:42 Low back strain 218766255 Active Sera Kwok MD [address] [address], [facility] 6 09:36:37 Allergic reaction to wasp sting 426229674 Active Sera Kwok MD [address] [address], [facility] 5 15:13:35 Candidiasis of skin 67227982 Active Sera Kwok MD [address] [address], [facility] 6 07:50:42 Problem Notes None recorded. Procedures Surgical History Date Name Laterality Status Provider Name and Address Organization Details Recorded Time 01/10/20 22 Colonoscopy completed Sera Kwok MD [address], [address] [place] [address], [facility] 11/02/2022 09:40:32 01/06/20 18 stereotactically guided core needle biopsy completed Sera Kwok MD [address], [address] [place] [address], [facility] 09/04/2021 16:47:35 11/17/19 13 Breast Biopsy completed Sera Kwok MD [address], [address] [place] [address], [facility] 11/30/2012 15:35:02 04/19/19 07 Back Surgery completed Sera Kwok MD [address], [address] [place] [address], [facility] 11/30/2012 15:35:02 08/20/19 05 Caesarean Section completed Sera Kwok MD [address] [facility], [address], [place], [address], [facility] 11/30/2012 15:35:02 04/19/19 05 Tubal Ligation completed Sera Kwok MD [address] [facility], [address], [place], [address], [facility] 11/30/2012 15:35:02 destruction of lesion of uterus completed Sera Kwok MD [address] [facility], [facility], [place], [address], [facility] 09/04/2021 17:03:57 Imaging Results None recorded. Procedure Notes None recorded. Medical Equipment None [...] Available Not Available Vitals Date Recorded Body height Body mass index (BMI) Body weight Heart rate Oxygen saturation Oxygen saturation in Arterial blood by Pulse oximetry Body temperature Systolic blood pressure Diastolic blood pressure Provider Name and Address Organization Details Last Updated DateTime 5 170.18 cm 45 kg/m2 774389. 01 g 90 /min 97 % 97 % 97.9 [degF] 141 mm[Hg] 87 mm[Hg] [facility] 5 16:10:18 Date Recorded Heart rate Systolic blood pressure Diastolic blood pressure Provider Name and Address Organization Details Last Updated DateTime 06/10/2022 86 /min 131 mm[Hg] 91 mm[Hg] Sera Kwok MD [address] [facility], [address], [place], [address], [facility] 06/10/2022 15:21:22 Date Recorded Body weight Heart rate Oxygen saturation Oxygen saturation in Arterial blood by Pulse oximetry Body temperature Body mass index (BMI) Body height Systolic blood pressure Diastolic blood pressure Provider Name and Address Organization Details Last Updated DateTime 2 564201. 03 g 104 /min 98 % 98 % 98.8 [degF] 44.6 kg/m2 170.18 cm 133 mm[Hg] 84 mm[Hg] [facility] 2 16:12:52 Date Recorded Body height Body mass index (BMI) Body weight Heart rate Oxygen saturation Oxygen saturation in Arterial blood by Pulse oximetry Body temperature Systolic blood pressure Diastolic blood pressure Provider Name and Address Organization Details Last Updated DateTime 3 170.18 cm 45.1 kg/m2 871240 g 76 /min 97 % 97 % 97.3 [degF] 131 mm[Hg] 88 mm[Hg] [facility] 3 09:08:38 Date Recorded Body height Body mass index (BMI) Body weight Heart rate Oxygen saturation Oxygen saturation in Arterial blood by Pulse oximetry Body temperature Systolic blood pressure Diastolic blood pressure Provider Name and Address Organization Details Last Updated DateTime 4 170.18 cm 45 kg/m2 247845. 71 g 96 /min 98 % 98 % 98.2 [degF] 123 mm[Hg] 82 mm[Hg] [facility] 4 15:29:54 Date Recorded Body height Body weight Heart rate Oxygen saturation Oxygen saturation in Arterial blood by Pulse oximetry Body temperature Systolic blood pressure Diastolic blood pressure Provider Name and Address Organization Details Last Updated DateTime 4 170.18 cm 681970. 01 g 85 /min 98 % 98 % 98.4 [degF] 121 mm[Hg] 79 mm[Hg] [facility] 16:05:49 Social History Question Answer Notes LastModified by Organizat ion Details LastModified Time Tobacco Smoking Status Never Smoker Sera Kwok MD [address] [facility], [address], [place], [address], [facility] 03/26/2014 08:10:45 What Is Your Level Of Caffeine Consumption? None Information not available 09/04/2021 What Type Of Diet Are You Following? REGULAR Information not available 09/04/2021 What Is The Highest Grade Or Level Of School You Have Completed Or The Highest Degree You Have Received? [id number] [employer] [facility] [facility] Information not available 09/04/2021 Who Is Your Employer? [employer] Information not available 11/02/2022 What Was The [...] formulation 6 completed Sera Kwok MD [address] [facility] 02/27/2016 16:30:43 Influenza, split virus, quadrivalent, preservative 7 completed Sera Kwok MD [address] [place] [address] [facility] 03/19/2017 23:40:58 Influenza, split virus, quadrivalent, preservative 8 completed Sera Kwok MD [address] [facility] 03/14/2018 10:29:23 Tdap 0 completed Sera Kwok MD [address] [facility] 09/04/2021 16:48:07 influenza, unspecified formulation 9 completed Sera Kwok MD [address] [facility] 06/08/2022 12:25:03 influenza, unspecified formulation 1 completed [facility] 06/09/2022 15:24:26 influenza, unspecified formulation 2 completed [facility] 06/09/2022 15:24:32 influenza, unspecified formulation 4 completed Sera Kwok MD [address], [address], [facility] 03/03/2024 16:04:28 Past Encounters Encounter ID Performer Location Encounter Start Date Encounter Closed Date Diagnosis/Indication Diagnosis SNOMED-CT Code Diagnosis ICD10 Code Diagnosis Note [id number] Sera Kwok MD [facility] [address] [place] [id number] 09/04/2021 15:54:08 09/08/2021 08:18:05 Adult health examination 956408843 Z00.00 Screening for malignant neoplasm of colon 407739707 Z12.11 Mixed anxi ety and depressive disorder 728094994 F41.8 Gastroesop hageal reflux disease 965774429 K21.00 Essential hypertension 38649686 I10 148/103 HR 79 History of migraine 1614 66928 Z86.69 Lumbar post-laminectomy syndrome 440612546 M96.1 Body mass index 40+ - severely obese 502792779 Z68.41 [id number] Sera Kwok MD [facility] [address] [place] [id number] 7 11/02/2022 09:01:44 11/05/2022 08:40:28 Adult health examination 049236550 Z00.00 Mixed anxi ety and depressive disorder 222438766 F41.8 Gastroesop hageal reflux disease 753191999 K21.00 Essential hypertension 13319342 I10 History of migraine 1614 74095 Z86.69 Lumbar post-laminectomy syndrome 256874054 M96.1 Body mass index 40+ - severely obese 532145034 Z68.42 Impaired g lucose tolerance 7653034 R73.09 Hepatitis C screening 41 0996538 Z11.59 Hypothyroidism 83284146 E03.9 [id number] Sera Kwok MD [facility] [address] [id number] 7 03/03/2024 15:07:20 03/06/2024 11:44:59 Adult health examination 292876923 Z00.00 Mixed anxi ety and depressive disorder 733229053 F41.8 Gastroesop hageal reflux disease 878453079 K21.00 Essential hypertension 66488072 I10 History of migraine 1614 62286 Z86.69 Lumbar post-laminectomy syndrome 920840609 M96.1 Body mass index 40+ - severely obese 044223949 Z68.42 Bereavement 10010381 Z63 .4 [id number] Sera Kwok MD [facility] [address] [id number] 7 03/23/2024 15:44:25 03/23/2024 16:53:36 Disorder of respiratory system 67617590 J98.9 Acute maxi llary sinusitis 58357547 J01.00 Respirator y tract congestion and cough 910624751 R05.1 [id number] Sera Kwok MD [facility] [address] [address] 7 05/25/2024 15:45:22 05/29/2024 08:42:04 Chest wall pain 381845151 R07.89 this has been persistent and worsening since February. Glucose le miriam outside reference range 991531239 R73.09 Cervical radiculopathy 89090591 M54.12 Atypical chest pain 1025 91519 R07.89 Anterior p leuritic pain 2274569273 104 R07.1 Essential hypertension 73479080 I10 Health Concerns Section Related Observation LastModified by Organization Detai ls LastModified Time None Recorded Concern Status LastModified by Organization Details LastModified Time None Recorded Advance Directives Directive None Recorded Payers Insurance Date Sequence Insurance Name Policy Number Policy Brennan Covered Member ID Brennan Member ID Guarantor Name 03/03/2024 1 [employer] (HMO) [id number] Anne Garcia [id number] Anne Garcia 03/03/2024 1 [employer] (POS) [id number] Anne Garcia [id number] Anne Garcia 08/30/2024 1 R (POS) [id number] Anne Garcia [id number] Anne Garcia Notes Date Note Type Note Provider Name and Address Organization Details Recorded Time 11/02/2022 text/html feels like she h as a sugar problem and uses her 's glucometer. Sometimes has very low sugars. She gets this sensation of clamminess and palpitations every other day as well. Sera Kwok MD [address], [address], [facility] 11/04/2022 11:40:46 03/03/2024 text/html recently lost he r mother unexpectedly so it has been difficult for her. Sera Kwok MD [address] [address], [place], [address], [facility] 03/05/2024 20:02:11 03/23/2024 text/html she has been ill since Wednesday and is getting worse with chills, coughing productively with a lot of drainage. Her face and left ear hurt. Sera Kwok MD [address] [address], [place], [address], [facility] 03/23/2024 16:35:45 05/25/2024 text/html when [...] is right handed. Sera Kwok MD [address] [facility], [address], [place], [address], [facility] 2024 21:26:19 OBGyn Episode No OBEpisode recorded.
--- OUTSIDE RECORDS SUMMARY | 2024-10-18 15:53 | XMS_ITS | Clinical Summary ---
Author Organization [facility] Address [address] [place] [address] Phone Care Team Providers Care Gerontology Aide Name Role Phone Unavailable Primary Care Provider Unavailabl e Allergies No known active allergies Medications oxyCODONE-acetam inophen (PERCOCET) 5-325 mg Oral Tablet Take 1 Tab by mouth every 6 hours as needed for Acute Pain (R52) for up to 6 doses. 6 Tab 12/30/2019 Active Immunizations Immunization Administration Dates Next Due Tdap 12/30/2019 Surgical History Surgery Date Site/Laterality Comments BACK SURGERY SECTION TUBAL LIGATION Medical History Medical History Date Comments Hypertension Anxiety Social History Tobacco Use Types Packs/Day Years Used Date Smoking Tobacco: Never Smokeless Tobacco: Never Alcohol Use Standard Drinks/Week Comments Never 0 (1 standard drink = 0.6 oz pur e alcohol) AUDIT-C Answer Date Recorded Q1: How often do you have a drink containing alc ohol? Never 12/30/2019 Average Number of Drinks Not on file 020 Frequency of Binge Drinking Not on file 12/18 Comments No Sex and Gender Information Value Date Recorded Sex Assigned at Not on file Legal Sex Female 10:13 AM EDT Gender Identity Not on file Sexual Orientation Not on file Obstetrics History Last Filed Vital Signs Vital Sign Reading Time Taken Comments Blood Pressure 130/75 12/30/2019 10:16 AM EDT Pulse 69 12/30/2019 10:16 AM EDT Temperature 36.7 C (98.1 F) 12/30/2019 10:16 AM EDT Respiratory Rate 16 12/30/2019 10:16 AM EDT Oxygen Saturation 99% 12/30/2019 10:16 AM EDT Inhaled Oxygen Concentration - - Weight 124.7 kg (275 lb) 12/30/2019 10:16 AM EDT Height 170.2 cm (5' 7 ) 12/30/2019 10:16 AM EDT Body Mass Index 43.07 12/30/2019 10:16 AM EDT Plan of Treatment Health Maintenance Due Date Last Done Comments Annual Wellness Exam 1978 Hepatitis B Vaccine (1 of 3 - 19+ 3-dose series) 1994 Cologuard 2020 Colon Cancer Screening 2020 Colonoscopy 2020 FIT 2020 Sigmoidoscopy 2020 Virtual Colonography 2020 COVID-19 Vaccine ( - 2023-2 5 season) 2023 Influenza Vaccine (Season Ended) 2024 DTaP/TDaP/Td (2 - Td or Tdap) 12/29/2029 12/30/2019 Meningococcal B Vaccine Aged Out No l onger eligible based on patient's age to complete this topic Pneumococcal Vaccine 0-49 Aged Out No longer eligible based on patient's age to complete this topic
--- NOTE | 2024-10-18 16:00 | MM_ITS ---
PROCEDURE INFORMATION: Exam: MG Bilateral Screening 3D Mammography Exam date and time: 10/18/2024 3:52 PM Age: 49 years old Clinical indication: Screening exam. TECHNIQUE: Imaging protocol: Bilateral Screening tomosynthesis and 2D mammography including computer-aided detection (CAD) when performed. COMPARISON: 1. MG MM DIG SCREENING MAMM BI W/CAD 10/18/2023 4:01 PM 2. MG MM DIG SCREENING MAMM BI W/CAD 10/08/2022 3:51 PM FINDINGS: MAMMOGRAPHY: Breast composition: There are scattered areas of fibroglandular density. Mass: No suspicious masses. Architectural distortion: None. Calcifications: No suspicious calcifications. Asymmetric density: None. Skin thickening: None. Axillary adenopathy: None. IMPRESSION: No mammographic evidence of malignancy. Annual screening is recommended unless otherwise clinically indicated. ASSESSMENT: BI-RADS Category 1: Negative.
== END 2024-10-18 23:59 | disposition home or self-care (01) ==
LOC: RAD 15:51
PROVIDERS: PCP Family Medicine; Visit Provider Nurse Practitioner Obstetrics & Gynecology
DX: Z12.31 Encounter for screening mammogram for malignant neoplasm of breast (principal); R92.323 Mammographic fibroglandular density, bilateral breasts; Z80.3 Family history of malignant neoplasm of breast
CPT/HCPCS: 77063; 77067